=== PATIENT | male | born 1985 | race Caucasian/White ===

== ENCOUNTER 2020-05-12 16:38 | Emergency (ER) | payer MEDICAID, SELFPAY ==
[2020-05-12 16:56] VITALS: BP 150/87; BP 150/90; PULSE 90; PULSE 97; RESP 19; TEMP 36.7; O2SAT 100; O2SAT 99; BMI 43.1
--- NOTE | 2020-05-12 17:03 | ED_ITS ---
HPI - Overdose General Chief Complaint: ETOH/Substance Use Stated Complaint: SUBSTANCE ABUSE Time Seen by Provider: 05/12/20 17:02 Source: patient Mode of arrival: EMS Limitations: no limitations History of Present Illness HPI Narrative: Patient brought by EMS for questionable shortness of breath when EMS arrived at home patient was slightly hallucinating walking around seems like under influence of PCP patient is, otherwise and compliant denying any use of PCP complaint: accidental overdose Onset (ago): minute(s) Intent: unwilling to say Related Data Allergies Allergy/AdvReac Type Severity Reaction Status Date / Time Penicillins [PENICILLINS] Allergy Severe SHORTNESS Verified 05/12/20 16:56 OF BREATH sulfamethoxazole Allergy Severe HIVES Verified 05/12/20 16:56 [From BACTRIM] trimethoprim [From BACTRIM] Allergy Severe HIVES Verified 05/12/20 16:56 Review of Systems Review of Systems: Yes Unobtainable due to mental status PMFSH Social History Social History Alcohol intake: never Smoking Status: Never smoker Use of substances other than those prescribed or required for medical reasons: Unknown Advance Directives: No Advance Directives Information Provided: No Physical Exam Vital Signs: Vital Signs: Last Vital Signs Temp 98.1 F 05/12/20 16:56 Pulse 97 05/12/20 16:56 Resp 19 05/12/20 16:56 BP 150/87 H 05/12/20 16:56 Pulse Ox 99 05/12/20 16:56 Body Mass Index 43.1 Const: General: comfortable and no acute distress Orientation/consciousness: patient oriented x3 HENMT: Head: Yes normocephalic and Yes atraumatic Eyes: General: appearance normal, both eyes and all related structures Pupils: Equal, round and reactive pupils present Neck: Neck: Yes normal visual inspection Resp: Effort & Inspection: normal respiratory effort Auscultation: clear to auscultation bilaterally, no crackles and no rales Cardio: Jugular venous distension: no JVD Palpation: normal PMI Rate: regular rate Rhythm: regular rhythm Heart sounds: S1 normal heart sound present and S2 normal heart sound present Peripheral pulses: Peripheral pulses 2+ throughout GI: Inspection: Yes normal to inspection Palpation (GI): Soft to palpation and nontender Auscultation: normal bowel sounds : General: Yes no CVA tenderness Back/Spine/Pelvis: Back: no CVA tenderness Thoracic/Lumbar Spine: thoracic and lumbar spine normal to inspection Skin: General skin exam: no rashes or lesions noted Neuro: General: patient oriented x3 and no focal motor deficits Cranial nerves: Yes Equal, round and reactive pupils present Extrem: General: Yes normal to inspection and Yes normal gait Psych: Appearance: grossly normal Mental Status: mental status grossly normal Speech and movement: Normal speech and movement present Affect: Ecstatic affect present Attitude: cooperative Thought process: Loose association thought process present Thought content: Derealization present Insight: Limited insight present (Psych) Judgement: Limited judgement present (Psych) MDM - Overdose MDM Narrative Medical decision making narrative: Patient influenza PCP no significant life- threatening hallucination noticed in the ER patient is calm cooperative will discharge him home with his family Lab Data Attestation: I reviewed the patient's lab results. Labs: Lab Results 05/12/20 Range/Units 17:43 Urine Opiates Screen Not Detected (Not Detect) Ur Barbiturates Screen Not Detected (Not Detect) Ur Phencyclidine Scrn POSITIVE H (Not Detect) Ur Amphetamines Screen Not Detected (Not Detect) U Benzodiazepines Scrn Not Detected (Not Detect) Urine Cocaine Screen Not Detected (Not Detect) U Marijuana (THC) Screen Not Detected (Not Detect) Discharge Plan Discharge Clinical Impression: PCP intoxication Qualifiers: Complication of substance-induced condition: uncomplicated Qualified Code(s): F16.920 - Hallucinogen use, unspecified with intoxication, uncomplicated Patient Disposition: Home, Self-Care Instructions: Polysubstance Abuse (ED) Additional Instructions: Stop using PCP. Follow-up with detox
[2020-05-12 18:19] LABS: Amphetamine Screen Urine Not Detected (Not Detect); Barbiturates, Urine Not Detected (Not Detect); Benzodiazepines Screen Urine Not Detected (Not Detect); Cannabinoid Screen Urine Not Detected (Not Detect); Cocaine Screen Urine Not Detected (Not Detect); Opiate Screen Urine Not Detected (Not Detect); Phencyclidine Screen Urine POSITIVE (Not Detect)
== END 2020-05-12 18:55 | disposition home or self-care (01) ==
PROVIDERS: Emergency Provider Internal Medicine
DX: F16.129 Hallucinogen abuse with intoxication, unspecified (principal); F16.151 Hallucinogen abuse with hallucinogen-induced psychotic disorder with hallucinations
CPT/HCPCS: 80307; 99283; 99284

== ENCOUNTER 2020-07-16 14:39 | Emergency (ER) | payer MEDICAID, SELFPAY ==
[2020-07-16 15:27] VITALS: BP 143/84; BP 148/78; PULSE 107; PULSE 94; RESP 16; TEMP 36.6; O2SAT 95; BMI 41.8
--- NOTE | 2020-07-16 15:45 | PC.NURSE ---
Pt steady on feet, asking for this RN. Pt made aware I will attend to him momentarily. Pt also noted to be masturbating in [place]. Next time pt noted not to be in [place] bed, security reports pt left 5 min prior. Security attempted to find pt and unable. Lisa aware.
--- NOTE | 2020-07-16 15:58 | ED.ALCOHOL ---
HPI - Alcohol General Chief Complaint: ETOH/Substance Use Stated Complaint: PCP USE,CALM AND COOP @ THIS TIME Time Seen by Provider: 07/16/20 15:01 Source: patient and EMS Mode of arrival: EMS History of Present Illness HPI narrative: 34-year-old male with a past medical history of PCP abuse brought in by EMS for fall down stairs under the influence of PCP. Per EMS patient was found awake and alert on their arrival, patient denies illicit drug/ETOH use or falling down the stairs/trauma or injury. Patient not cooperative with my history. Denies headache, CP/SOB, abdominal pain, nausea/vomiting, any injury, SI or HI Related Data Allergies Allergy/AdvReac Type Severity Reaction Status Date / Time Penicillins [PENICILLINS] Allergy Severe SHORTNESS Verified 05/12/20 16:56 OF BREATH sulfamethoxazole Allergy Severe HIVES Verified 05/12/20 16:56 [From BACTRIM] trimethoprim [From BACTRIM] Allergy Severe HIVES Verified 05/12/20 16:56 Review of Systems Review of Systems: Constitutional: No Fever, No Chills Cardiovascular: No Chest Pain, No SOB Gastrointestinal: No Abdominal pain Musculoskeletal: No joint pain Skin: No Skin Lesions, No rash Neuro: No Weakness, No Loss of Consciousness, No Headache Psych: No Depression, No SI/HI Yes all other systems are reviewed and are negative [facility] Past Medical History Attestation statement: The following information was validated with the patient. Social History Social History Alcohol intake: never Smoking Status: Never smoker Advance Directives: No Advance Directives Information Provided: No Physical Exam Vital Signs: Vital Signs: Last Vital Signs Temp 98 F 07/16/20 15:27 Pulse 107 H 07/16/20 15:27 Resp 16 07/16/20 15:27 BP 143/84 H 07/16/20 15:27 Pulse Ox 95 07/16/20 15:27 Body Mass Index 41.8 Const: General: cooperative, healthy appearing, comfortable, no acute distress, alert and awake HENMT: Head: Yes normal to inspection, Yes atraumatic, No Vines's sign and No raccoon eyes Ears: hearing grossly normal bilaterally General nose exam: Normal external nose present Face and sinus: Yes normal facial exam Eyes: General: appearance normal, both eyes and all related structures EOM: EOMs intact bilaterally Neck: Other: No midline cervical spinous tenderness Neck: Yes normal visual inspection and Yes no meningeal signs Chest: Chest palpation & inspection: normal inspection of the chest, no crepitus and no tenderness Resp: Effort & Inspection: normal respiratory effort Auscultation: clear to auscultation bilaterally Cardio: Rate: regular rate Heart sounds: S1 normal heart sound present and S2 normal heart sound present GI: Inspection: Yes normal to inspection Palpation (GI): Soft to palpation, nontender, no guarding and not rigid Back/Spine/Pelvis: Other: No midline thoracic/lumbar spinous tenderness Skin: Rashes: no rashes Wounds: no wounds Neuro: Other: Following simple commands, intermittently answering questions with simple/one-word answers General: gait normal, tone normal, moves all extremities, no meningeal signs and no focal motor deficits Gait exam (Neuro): Normal gait present Extrem: General: Yes normal to inspection Course Course Course Narrative: -1550--patient eloped the ED, was seen by security walking up the hill behind campus. Prior to eloping was in hallway bed inappropriately touching himself. Patient ambulated with steady gait out of the ED per witnessed bystanders, we were unable to locate patient to bring him back to ED. MDM - Alcohol MDM Narrative Medical decision making narrative: 34-year-old male with a past medical history of PCP abuse brought in by EMS for fall down stairs under the influence of PCP. On exam mildly tachycardic, NAD, atraumatic, in no apparent distress, awake and alert sitting up in bed, appears under the influence, not cooperative with my history, no trauma appreciated, no focal neuro deficits Plan to observe and reassess Discharge Plan Discharge Clinical Impression: PCP (phencyclidine) abuse Patient Disposition: Elopement Referrals: [place],[facility] [Primary Care Provider] - 2 days Discharge Date/Time: 07/16/20 15:45
== END 2020-07-16 15:45 | disposition left against medical advice (07) ==
PROVIDERS: Emergency Provider Emergency Medicine
DX: F16.10 Hallucinogen abuse, uncomplicated (principal); R00.0 Tachycardia, unspecified
CPT/HCPCS: 36415; 87635; 99281; 99282; 99283

== ENCOUNTER 2020-07-16 18:58 | Emergency (ER) | payer MEDICAID, SELFPAY ==
[2020-07-16 19:13] VITALS: BP 145/86; PULSE 101; RESP 16; TEMP 36.2; O2SAT 95; BMI 38.0
[2020-07-16 19:56] LABS: COVID-19 Test Negative (Negative)
--- NOTE | 2020-07-16 20:06 | ED_ITS ---
HPI - Psych General Chief Complaint: Psychiatric Symptoms Stated Complaint: crisis Source: patient and EMS Mode of arrival: EMS Limitations: altered mental status (PCP) History of Present Illness HPI Narrative: 34-year-old male with past medical history of PCP abuse presents via EMS for erratic behavior, public nudity, on [address] [place] [employer]. Patient is well-known to this facility and has presented for similar circumstances multiple times in the past. MD complaint: substance abuse Onset (ago): hour(s) (Within the hour of arrival) Duration: constant History of same: Yes Relieving factors: none Exacerbating factors: drug use Context: recent drug abuse Associated psychiatric symptoms: none Associated symptoms: denies other symptoms Related Data Allergies Allergy/AdvReac Type Severity Reaction Status Date / Time Penicillins [PENICILLINS] Allergy Severe SHORTNESS Verified 05/12/20 16:56 OF BREATH sulfamethoxazole Allergy Severe HIVES Verified 05/12/20 16:56 [From BACTRIM] trimethoprim [From BACTRIM] Allergy Severe HIVES Verified 05/12/20 16:56 Review of Systems Review of Systems: Yes Unobtainable due to mental status PMFSH Past Medical History Attestation statement: The following information was validated with the patient. Source: old records reviewed Social History Social History Alcohol intake: never Smoking Status: Never smoker Advance Directives: No Advance Directives Information Provided: Yes Physical Exam Vital Signs: Vital Signs: Last Vital Signs Temp 97.2 F 07/16/20 19:13 Pulse 101 H 07/16/20 19:13 Resp 16 07/16/20 19:13 BP 145/86 H 07/16/20 19:13 Pulse Ox 95 07/16/20 19:13 Body Mass Index 38.0 Appearance: Alert. Oriented X3. Moderate distress PCP intoxication. Eyes: Pupils equal, round and reactive to light. ENT: Pharynx normal. Neck: Normal inspection. Neck supple. CVS: Normal heart rate and rhythm. Pulses normal. Respiratory: No respiratory distress. Breath sounds normal. Abdomen: Soft and nontender. Skin: Skin warm and dry. Normal skin color. Normal skin turgor. Extremities: No lower extremity edema. Neuro: No motor deficit. No sensory deficit. Course Course Course Narrative: Patient found naked in the street, brought in by EMS and police escort. Appears to be intoxicated with history of PCP abuse. [address]. Patient evaluated 3 hours after arrival to the unit. Patient is alert oriented x3, answering questions to the best of his ability. Denies suicidal ideation, homicidal ideations, and states to have used PCP earlier today that has impaired his ability to recall the events that led him up to the emergency department. Patient presents to the emergency department for PCP intoxication quite often, his family is willing to take him home. As patient is not suicidal or homicidal, and is not a threat to others or himself plan is to discharge in the care of his parents. Family verbalized understanding of and agrees to plan of care. MDM - Psych Differential Diagnosis Differential diagnosis: Likely acute psychosis, drug-induced psychotic disorder and schizoaffective disorder Medical Records Attestation: I reviewed the patient's medical records. Lab Data Attestation: I reviewed the patient's lab results. Labs: Lab Results 07/16/20 Range/Units 19:29 COVID-19 (ANNEL) Negative (Negative) COVID-19 Clin Com See Note Discharge Plan Discharge Clinical Impression: PCP (phencyclidine) abuse Patient Disposition: Home, Self-Care Instructions: Polysubstance Abuse (ED) Additional Instructions: Please consider detox. Thank you for choosing this emergency department for evaluation. Please follow-up with primary care physician as needed. Return to the emergency department for any new, concerning, or worsening symptoms. Interventions: ED Discharge Assessment Last Done: 07/16/20 21:50 Discharge Date/Time: 07/16/20 22:05
== END 2020-07-16 22:05 | disposition home or self-care (01) ==
PROVIDERS: Nurse Practitioner Family; Emergency Provider Emergency Medicine
DX: F16.10 Hallucinogen abuse, uncomplicated (principal); Z20.822 Contact with and (suspected) exposure to COVID-19
CPT/HCPCS: 36415; 87635; 99282; 99283

== ENCOUNTER 2020-09-13 09:32 | Outpatient (REF) | payer MEDICAID, SELFPAY | END 2020-09-13 09:33 | disposition home or self-care (01) | LOC: HO.LAB 09:32 | PROVIDERS: Visit Provider Internal Medicine | DX: Z20.822 Contact with and (suspected) exposure to COVID-19 (principal) | CPT/HCPCS: C9803; U0003; U0005 ==

== ENCOUNTER 2020-12-20 02:24 | Emergency (ER) | payer MEDICAID, SELFPAY ==
[2020-12-20 02:30] VITALS: BP 122/76; PULSE 86; O2SAT 97
[2020-12-20 02:33] VITALS: BP 159/93; PULSE 67; RESP 16; O2SAT 100; BMI 34.9
--- NOTE | 2020-12-20 03:15 | ED.GENADULT ---
HPI - General Adult General Chief complaint: ETOH/Substance Use Stated complaint: PCP Time Seen by Provider: 12/20/20 03:14 Source: patient Mode of arrival: ambulatory Limitations: no limitations History of Present Illness HPI narrative: Patient with history of substance abuse his PCP earlier today brought by ambulance intoxicated on the street. On arrival patient is calm cooperative denies any hallucination Related Data Allergies Allergy/AdvReac Type Severity Reaction Status Date / Time Penicillins [PENICILLINS] Allergy Severe SHORTNESS Verified 05/12/20 16:56 OF BREATH sulfamethoxazole Allergy Severe HIVES Verified 05/12/20 16:56 [From BACTRIM] trimethoprim [From BACTRIM] Allergy Severe HIVES Verified 05/12/20 16:56 Review of Systems Review of Systems: Yes all other systems are reviewed and are negative PMFSH Past Medical History Medical History ACL (anterior cruciate ligament) tear Social History Social History Alcohol intake: never Advance Directives: No Advance Directives Information Provided: No Physical Exam Vital Signs: Vital Signs: Last Vital Signs Pulse 67 12/20/20 02:33 Resp 16 12/20/20 02:33 BP 159/93 H 12/20/20 02:33 Pulse Ox 100 12/20/20 02:33 Body Mass Index 34.9 Appearance: Alert. Oriented X3. No acute distress. Slightly euphoric no hallucinations Eyes: PERRLA, No Nystagmus ENT: Pharynx normal. Oral Mucosa moist Neck: Normal inspection. Neck supple. CVS: Normal heart rate and rhythm. Pulses normal. Respiratory: No respiratory distress. Equal air entry bilateral, no wheezing/rales/rhonchi Abdomen: Soft and nontender. Bowel sounds are present, Skin: Skin warm and dry. Normal skin color. Extremities: No lower extremity edema. Neuro: Oriented X 3. Medical Decision Making MDM Narrative Medical decision making narrative: 4:15am Patient walking in a straight line improved, no hallucinations will discharge patient home Discharge Plan Discharge Clinical Impression: PCP (phencyclidine) abuse Patient Disposition: Home, Self-Care Instructions: Polysubstance Abuse (ED) Additional Instructions: Do not use PCP or any other substance Follow-up with detox if needed
[2020-12-20 04:00] VITALS: BP 149/93; PULSE 76; RESP 18; O2SAT 98
== END 2020-12-20 04:27 | disposition home or self-care (01) ==
PROVIDERS: Emergency Provider Internal Medicine
DX: F16.10 Hallucinogen abuse, uncomplicated (principal); Z71.51 Drug abuse counseling and surveillance of drug abuser; Z79.899 Other long term (current) drug therapy
CPT/HCPCS: 99283; 99284

== ENCOUNTER 2020-12-29 01:38 | Emergency (ER) | payer MEDICAID, SELFPAY ==
[2020-12-29 01:46] VITALS: BP 146/84; PULSE 76; RESP 16; TEMP 36.8; O2SAT 97; BMI 35.2
--- NOTE | 2020-12-29 01:52 | ED_ITS ---
HPI - General Adult General Chief complaint: General Medical Stated complaint: stroke alert Time Seen by Provider: 12/29/20 01:52 Source: EMS Mode of arrival: EMS History of Present Illness HPI narrative: 35-year-old male brought in by EMS initially as a stroke alert, reporting no bystanders, as well as ?from home? and unable to identify who called EMS. On arrival, best response was patient acknowledged using drugs prior to arrival. Related Data Allergies Allergy/AdvReac Type Severity Reaction Status Date / Time Penicillins [PENICILLINS] Allergy Severe SHORTNESS Verified 05/12/20 16:56 OF BREATH sulfamethoxazole Allergy Severe HIVES Verified 05/12/20 16:56 [From BACTRIM] trimethoprim [From BACTRIM] Allergy Severe HIVES Verified 05/12/20 16:56 Review of Systems Review of Systems: Pertinent positives and negatives as stated in the HPI and 10 point review of systems is otherwise negative. Yes Unobtainable due to mental condition PMFSH Past Medical History Source: nursing notes reviewed Medical History ACL (anterior cruciate ligament) tear Social History Social History Alcohol intake: never Advance Directives: No Advance Directives Information Provided: Yes Physical Exam Vital Signs: Vital Signs: Last Vital Signs Temp 98.3 F 12/29/20 01:46 Pulse 76 12/29/20 01:46 Resp 16 12/29/20 01:46 BP 146/84 H 12/29/20 01:46 Pulse Ox 97 12/29/20 01:46 Body Mass Index 35.2 VITAL SIGNS: Reviewed. GENERAL: Well developed, well nourished, in no acute distress. HEAD: Normocephalic/atraumatic EYES: PERRLA, EOMI without nystagmus OROPHARYNX: no oral lesions noted, posterior pharynx clear NECK: Supple, no adenopathy LUNGS: Normal breath sounds. CARDIOVASCULAR: Regular rate and rhythm without noted murmurs ABDOMEN: Soft, non-tender, non-distended with bowel sounds. MUSCULOSKELETAL: No tenderness, deformities, or effusions noted on gross inspection. EXTREMITIES: No cyanosis, clubbing or edema. SKIN: Inspection of the skin reveals no rashes NEUROLOGIC: Alert and oriented x 1. Strength and sensation to light touch were grossly intact x 4, noted spontaneous movement of all 4 extremities without obvious deficits, no facial asymmetry. NIH Stroke Scale Internal: Initial- Upon Arrival Level of Consciousness: Alert Level of Consciousness Questions: Answers both questions correctly Level of Consciousness Commands: Performs both tasks correctly Best Gaze: Normal Visual: No visual loss Facial Palsy: Normal Motor Arm (Right): No drift Motor Arm (Left): No drift Motor Leg (Right): No drift Motor Leg (Left): No drift Limb Ataxia: Absent Sensory: Normal Best Language: Mute, global aphasia Dysarthia: Normal Extinction and Inattention: No abnormality Score: 3 Course Course Course Narrative: 35-year-old male with initial presentation as a stroke alert, however on arrival patient is known and suspected to have used substances prior to arrival and is observed to be moving all 4 extremities without complications, patient observed to be smiling and there is no noted facial asymmetry. Low clinical suspicion for acute ischemic stroke and patient not emergently scanned. Patient was later observed to easily transfer himself from the EMS gurney onto the ER gurney. NIH Stroke Scale was filled out, however due to patient's substance use there are areas that are really not applicable and the score is not reflective of patient's neurologic capacity. Patient was noted to be eating and drinking without difficulty and walking to the bathroom with a steady gait. Patient obtained safe transportation home and requested discharge. There were no acute medical conditions identified and patient was discharged home in stable condition. Discharge Plan Discharge Clinical Impression: Active substance abuse Patient Disposition: Home, Self-Care Instructions: Polysubstance Abuse (ED) Additional Instructions: Return to the ER for worsening symptoms and follow-up with your primary care provider on Wednesday. Interventions: ED Discharge Assessment Last Done: 12/29/20 04:22 Discharge Date/Time: 12/29/20 04:23 Print Language: Salvadorean
--- NOTE | 2020-12-29 02:05 | PC.NURSE ---
PATIENT IS ALERT ANSWERING QUESTIONS, TALKING ON THE PHONE AND IS ORIENTED TO PERSON, PLACE AND TIME. ASKING FRIEND ON THE PHONE FOR A RIDE HOME. TOLERATED PO CHALLENGE AND AMBULATING STEADILY IN THE HALLWAY ASKING STAFF FOR MORE FOOD. TELLING THE PERSON ON THE PHONE I WAS SMOKING AND NOW I AM HERE
== END 2020-12-29 04:23 | disposition home or self-care (01) ==
PROVIDERS: Emergency Provider Student in an Organized Health Care Education/Training Program
DX: F19.10 Other psychoactive substance abuse, uncomplicated (principal)
CPT/HCPCS: 99283

== ENCOUNTER 2020-12-31 11:39 | Emergency (ER) | payer MEDICAID, SELFPAY ==
--- NOTE | 2020-12-31 11:52 | ED.PSYCH ---
HPI - Psych General Chief Complaint: ETOH/Substance Use Stated Complaint: PSYCH EVAL,NO HI,NO SI Time Seen by Provider: 12/31/20 11:52 Source: patient and EMS Mode of arrival: EMS Limitations: other (appears under the influence, giggling) History of Present Illness HPI Narrative: 35 yo male seen here many times for PCP use comes in after grandmother called 911 for evaluation no other history given MD complaint: substance abuse Onset (ago): unknown Duration: intermittent History of same: Yes Relieving factors: none Exacerbating factors: drug use Context: other Associated psychiatric symptoms: none Associated symptoms: denies other symptoms Treatments prior to arrival: none Related Data Allergies Allergy/AdvReac Type Severity Reaction Status Date / Time Penicillins [PENICILLINS] Allergy Severe SHORTNESS Verified 05/12/20 16:56 OF BREATH sulfamethoxazole Allergy Severe HIVES Verified 05/12/20 16:56 [From BACTRIM] trimethoprim [From BACTRIM] Allergy Severe HIVES Verified 05/12/20 16:56 Review of Systems Review of Systems: ROS unable to be obtained due to altered mental status [facility] Past Medical History Medical History (Updated 12/31/20 @ 14:18 by Sara Foss DO) ACL (anterior cruciate ligament) tear PCP abuse Social History Social History (Updated 12/31/20 @ 12:17 by Sara Foss DO) Alcohol intake: never Substance Use Type: Hallucinogens Advance Directives: No Advance Directives Information Provided: No Physical Exam Vital Signs: Vital Signs: Last Vital Signs Temp 98.5 F 12/31/20 12:09 Pulse 89 12/31/20 12:09 Resp 14 12/31/20 12:09 BP 176/96 H 12/31/20 12:09 Pulse Ox 98 12/31/20 12:09 Body Mass Index 30.0 Appearance: Alert. Oriented to person/place giggling. No acute distress. Eyes: Pupils equal, round and reactive to light. no nystagmus ENT: Pharynx normal. Neck: Normal inspection. Neck supple. CVS: Normal heart rate and rhythm. Pulses normal. Respiratory: No respiratory distress. Breath sounds normal. Abdomen: Soft and non-tender. Skin: Skin warm and dry. Normal skin color. Extremities: No lower extremity edema. Neuro: Oriented X 2. No motor deficit. No sensory deficit. Giggling, walking around, smiling Course Course Course Narrative: around 6o or 7 visits for PCP abuse this year very disinhibited at this time patient seems to be more coherent at this time, pending clinical sobriety stable for DC MDM - Psych MDM Narrative Medical decision making narrative: 35 yo male with ED visits for PCP abuse here with c/o giggling and being confused - at this time labs, drug screen and observation, no trauma noted Lab Data Labs: Lab Results 12/31/20 12/31/20 Range/Units 14:39 14:39 Urine Opiates Screen Not Detected (Not Detect) Urine Fentanyl Screen Not Detected (Not Detect) Ur Barbiturates Screen Not Detected (Not Detect) Ur Phencyclidine Scrn POSITIVE H (Not Detect) Ur Amphetamines Screen Not Detected (Not Detect) U Benzodiazepines Scrn Not Detected (Not Detect) Urine Cocaine Screen Not Detected (Not Detect) U Marijuana (THC) Screen Not Detected (Not Detect) COVID-19 (ANNEL) Negative (Negative) COVID-19 Clin Com See Note Discharge Plan Discharge Clinical Impression: Drug abuse, phencyclidine Instructions: Polysubstance Abuse (ED) Additional Instructions: return to ED for any worsening symptoms or concerns
[2020-12-31 12:09] VITALS: BP 131/89; BP 176/96; PULSE 82; PULSE 89; RESP 14; TEMP 36.9; O2SAT 97; O2SAT 98
--- NOTE | 2020-12-31 13:17 | PC.NURSE ---
patient quiet sometimes staring at staff. sometimes comes out into milieu with no little top on.
--- NOTE | 2020-12-31 13:48 | MHC.RECOVSUP ---
? Reason for consult:Recovery support o Current location:[facility] o Identified substance use concern: Unknown - Support ? Intervention: ? Plan: ? Additional information: Pt. uncooperative, nurse was unable to get a blood draw or a urine for toxicity.
[2020-12-31 15:19] LABS: Amphetamine Screen Urine Not Detected (Not Detect); Barbiturates, Urine Not Detected (Not Detect); Benzodiazepines Screen Urine Not Detected (Not Detect); Cannabinoid Screen Urine Not Detected (Not Detect); Cocaine Screen Urine Not Detected (Not Detect); Fentanyl, urine Not Detected (Not Detect); Opiate Screen Urine Not Detected (Not Detect); Phencyclidine Screen Urine POSITIVE (Not Detect)
[2020-12-31 15:40] LABS: COVID-19 Test Negative (Negative)
[2020-12-31 17:38] VITALS: BP 133/82; PULSE 99; RESP 18; TEMP 37.4; O2SAT 95
--- NOTE | 2020-12-31 18:12 | MHC.RECOVSUP ---
? Reason for consult Recovery Support o Current location: [facility] o Identified substance use concern: PCP <del>-</del> <del>Overdose</del> <del>-</del> <del>Withdrawal</del> <del>-</del> <del>Seeking</del> <del>ATS</del> <del>(detox)</del> <del>-</del> <del>Support</del> ? Intervention: <del>o</del> <del>ATS</del> <del>bed</del> <del>search</del> <del>started/completed/in</del> <del>process</del> <del>o</del> <del>MAT</del> <del>started</del> <del>or</del> <del>to</del> <del>be</del> <del>started</del> o Community resources provided o Harm reduction discussion ? Plan: o Patient to follow up with HF after discharge ? Additional information: Patient stated that he is good, and that all he wants is to go home. I was able to talk some recovery and was given resources if he need or want recovery
== END 2020-12-31 18:35 | disposition home or self-care (01) ==
PROVIDERS: Emergency Provider Emergency Medicine
DX: F16.19 Hallucinogen abuse with unspecified hallucinogen-induced disorder (principal); Z20.822 Contact with and (suspected) exposure to COVID-19; Z79.899 Other long term (current) drug therapy
CPT/HCPCS: 36415; 80307; 87635; 99284

== ENCOUNTER 2021-01-01 16:16 | Emergency (ER) | payer MEDICAID, SELFPAY ==
--- NOTE | 2021-01-01 16:31 | ED_ITS ---
HPI - General Adult General Chief complaint: General Medical Stated complaint: SOMNOLENT S/P PCP USE PER EMS Time Seen by Provider: 01/01/21 16:20 Source: patient and EMS Mode of arrival: EMS Limitations: no limitations History of Present Illness HPI narrative: 35 yo male here after using PCP just [employer] with multiple visits for same. No reports of injury or trauma. Patient deneis additional substance use. No physical complaints. Related Data Allergies Allergy/AdvReac Type Severity Reaction Status Date / Time Penicillins [PENICILLINS] Allergy Severe SHORTNESS Verified 05/12/20 16:56 OF BREATH sulfamethoxazole Allergy Severe HIVES Verified 05/12/20 16:56 [From BACTRIM] trimethoprim [From BACTRIM] Allergy Severe HIVES Verified 05/12/20 16:56 Review of Systems Review of Systems: Yes all other systems are reviewed and are negative Constitutional: Constitutional: Reports no additional constitutional complaints, Denies body ache(s), Denies chills, Denies fever(s), Denies headache(s) and Denies weakness Eyes: Eyes: Reports no additional eye complaints and Denies change in vision ENT: Reports system reviewed and no additional complaints, except as documented, Denies dizziness, Denies headache(s), Denies nasal congestion, Denies nasal discharge and Denies neck pain Cardiovascular: Cardiovascular: Reports no additional cardiovascular complaints, Denies chest pain, Denies leg edema and Denies dyspnea Respiratory: Respiratory: Reports no additional respiratory complaints, Denies cough and Denies dyspnea Gastrointestinal: Gastrointestinal: Reports no additional gastrointestinal complaints, Denies abdominal pain, Denies diarrhea, Denies nausea and Denies vomiting Genitourinary: Genitourinary: Denies urinary incontinence Musculoskeletal: Musculoskeletal: Reports no additional musculoskeletal complaints, Denies back pain, Denies arthralgias, Denies joint swelling, Denies neck pain, Denies numbness and Denies tingling Integumentary/Breasts: Skin/Breast: Reports system reviewed and no additional complaints, except as docu and Denies rash Neurologic: Reports system reviewed and no additional complaints, except as documented, Denies Abnormal speech present, Denies dizziness, Denies headache(s), Denies numbness, Denies tingling and Denies weakness [facility] Past Medical History Attestation statement: The following information was validated with the patient. Source: old records reviewed and nursing notes reviewed Medical History ACL (anterior cruciate ligament) tear PCP abuse Social History Social History Alcohol intake: never Substance Use Type: Hallucinogens Advance Directives: No Advance Directives Information Provided: No Physical Exam Vital Signs: Vital Signs: Last Vital Signs Temp 98.4 F 01/01/21 18:42 Pulse 89 01/01/21 18:42 Resp 20 01/01/21 18:42 BP 144/100 H 01/01/21 18:42 Pulse Ox 98 01/01/21 18:42 Body Mass Index 31.6 Const: General: cooperative, healthy appearing, comfortable and no acute distress Orientation/consciousness: patient oriented x3 Limitations: no limitations HENMT: Head: Yes normal to inspection Ears: hearing grossly normal [place] aterally General nose exam: Normal external nose present Face and sinus: Yes normal facial exam Mouth: Normal oral and palatal mucosa present Throat: Yes posterior oropharynx normal Eyes: General: appearance normal, both eyes and all related structures Pupils: Equal, round and reactive pupils present Neck: Neck: Yes normal visual inspection Chest: Chest palpation & inspection: normal inspection of the chest Resp: Effort & Inspection: normal respiratory effort Auscultation: clear to auscultation bilaterally Cardio: Rate: regular rate Rhythm: regular rhythm Peripheral pulses: Peripheral pulses 2+ throughout GI: Inspection: Yes normal to inspection Palpation (GI): Soft to palpation and nontender Auscultation: normal bowel sounds Back/Spine/Pelvis: Thoracic/Lumbar Spine: thoracic and lumbar spine normal to inspection Skin: General skin exam: no rashes or lesions noted Neuro: General: patient oriented x3, no focal motor deficits and normal sensation to monofilament Cranial nerves: Yes CN's II-XII intact bilaterally, Yes Equal, round and reactive pupils present, Yes Bilaterally intact EOM present, Yes Nystagmus not present, Yes Normal facial strength present and Yes Midline tongue present Cognition (Neuro): normal cognition Speech: No Abnormal speech present Gait exam (Neuro): Normal gait present Motor exam (neuro): 5/5 motor strength present throughout Sensory Exam: Normal double simultaneous stimulation for sensation Extrem: General: Yes normal to inspection Course Course Course Narrative: 35 yo male here after using PCP. A&Ox4. Normal VS. Appears well. No concern for acute ingestion or trauma. Will check SHERMAN, observe patient. 1800-Patient noted to be wandering, walked down to cafeteria by himself. Sitter order placed. Charge nurse Andrei sotelo. 1829-spoke to the patient's grandmother who he lives with. She tells me that they have Section 35 to the patient 11 times for PCP use. He went to the court on Wednesday to Section 35 him but were told that there were no available inpatient beds that were COVID free. She plans on petitioning the court again next week. 1909-patient has arrived. He was able to ambulate to the cafeteria get himself chips and a soda with no difficulty. He is clinically sober. Reviewed worrisome signs and symptoms of when to return to the emergency department. Comfortable discharge home. Medical Decision Making Medical Records Medical records reviewed: Yes I reviewed the patient's medical records. Lab Data Lab results reviewed: Yes I reviewed the patient's lab results. Discharge Plan Discharge Clinical Impression: PCP (phencyclidine) abuse Patient Disposition: Home, Self-Care Instructions: Polysubstance Abuse (ED) Referrals: Physician,Unknown J [Primary Care Provider] - 2 days Interventions: ED Discharge Assessment Last Done: 01/01/21 18:49 Discharge Date/Time: 01/01/21 18:50
[2021-01-01 16:41] VITALS: BP 132/88; BP 140/70; PULSE 76; RESP 19; TEMP 36.6; O2SAT 99; BMI 31.6
[2021-01-01 18:42] VITALS: BP 144/100; PULSE 89; RESP 20; TEMP 36.9; O2SAT 98
== END 2021-01-01 18:50 | disposition home or self-care (01) ==
PROVIDERS: Emergency Provider Internal Medicine
DX: F16.10 Hallucinogen abuse, uncomplicated (principal)
CPT/HCPCS: 99283

== ENCOUNTER 2021-01-02 17:10 | Emergency (ER) | payer MEDICAID, SELFPAY ==
[2021-01-02 17:16] VITALS: BP 133/73; PULSE 100; O2SAT 100
[2021-01-02 17:32] VITALS: BP 134/84; PULSE 84; RESP 16; TEMP 36.9; O2SAT 97; BMI 35.2
--- NOTE | 2021-01-02 19:03 | ED_ITS ---
HPI - General Adult General Chief complaint: ETOH/Substance Use Stated complaint: pcp use Time Seen by Provider: 01/02/21 17:30 Source: patient and EMS Mode of arrival: EMS History of Present Illness HPI narrative: 35-year-old male with past medical history of PCP/substance abuse, brought in by ambulance after being found in his front lawn naked. Denies trauma/fall. Poor historian as appears under the influence, laughing/giggling on exam. Patient has been seen and treated in the ED multiple times for similar circumstances in the past week Onset (ago): hour(s) Related Data Allergies Allergy/AdvReac Type Severity Reaction Status Date / Time Penicillins [PENICILLINS] Allergy Severe SHORTNESS Verified 05/12/20 16:56 OF BREATH sulfamethoxazole Allergy Severe HIVES Verified 05/12/20 16:56 [From BACTRIM] trimethoprim [From BACTRIM] Allergy Severe HIVES Verified 05/12/20 16:56 Review of Systems Review of Systems: Unable to obtain ROS secondary to patient being under the influence Yes all other systems are reviewed and are negative PMFSH Past Medical History Attestation statement: The following information was validated with the patient. Medical History ACL (anterior cruciate ligament) tear PCP abuse Social History Social History Alcohol intake: never Patient Tobacco Use Status: Tobacco use Unknown Use of substances other than those prescribed or required for medical reasons: Yes Substance Use Type: Hallucinogens Advance Directives: No Advance Directives Information Provided: No Physical Exam Vital Signs: Vital Signs: Last Vital Signs Temp 98.4 F 01/02/21 17:32 Pulse 84 01/02/21 17:32 Resp 16 01/02/21 17:32 BP 134/84 01/02/21 17:32 Pulse Ox 97 01/02/21 17:32 Body Mass Index 35.2 Const: Other: Appears under the influence, smiling/giggling General: cooperative, alert and awake HENMT: Head: Yes normal to inspection, Yes atraumatic, No Vines's sign and No raccoon eyes Ears: hearing grossly normal bilaterally General nose exam: Normal external nose present Face and sinus: Yes normal facial exam Eyes: General: appearance normal, both eyes and all related structures Pupils: Equal, round and reactive pupils present EOM: EOMs intact bilaterally Neck: Neck: Yes normal visual inspection and Yes no meningeal signs Resp: Effort & Inspection: normal respiratory effort and no respiratory distress Cardio: Rate: regular rate Heart sounds: S1 normal heart sound present and S2 normal heart sound present GI: Inspection: Yes normal to inspection Palpation (GI): Soft to palpation, nontender, no guarding and not rigid Skin: Rashes: no rashes Wounds: no wounds Neuro: Other: Walking around ED General: tone normal, moves all extremities, no meningeal signs and no focal motor deficits Cranial nerves: Yes Equal, round and reactive pupils present Gait exam (Neuro): Normal gait present Extrem: General: Yes normal to inspection Course Course Course Narrative: -2021--patient ambulating in the ED safely, walking back and forth from the Fridge helping himself, eating, clinically sober. safe for discharge at this time Medical Decision Making MDM Narrative Medical decision making narrative: 35-year-old male with past medical history of PCP/substance abuse, brought in by ambulance after being found in his front lawn naked. On exam vital signs stable, NAD, appears under the influence, giggling, ambulating, no evidence of trauma Plan to observe and reassess for clinical sobriety Discharge Plan Discharge Clinical Impression: PCP (phencyclidine) abuse Patient Disposition: Home, Self-Care Instructions: Polysubstance Abuse (ED) Additional Instructions: Do not do drugs or drink alcohol it can kill you Follow-up with her doctor Referrals: [facility] [Physician] - 2 days [facility] [Primary Care Provider] - 2 days
--- NOTE | 2021-01-02 20:26 | PC.NURSE ---
Pt alert and oriented x4. Pt ambulating around ER, opening fridge and grabbing food. Pt noted to be touching himself in the hallway. Pt making sexual statements to discharge specialist. Pt educated to stop and to stay in bed assignment, ot choosing to not listen. Pt completely alert and oriented, steady on his feet. Pt educated on dc teaching, refused to sign dc paperwork. Pt ambulated out of ER with belongings. No IV in place. Pt refusing vital signs to be taken.
== END 2021-01-02 20:28 | disposition home or self-care (01) ==
PROVIDERS: Emergency Provider Internal Medicine
DX: F16.10 Hallucinogen abuse, uncomplicated (principal)
CPT/HCPCS: 99282; 99284

== ENCOUNTER 2021-01-04 00:14 | Emergency (ER) | payer MEDICAID, SELFPAY ==
[2021-01-04 00:15] VITALS: BP 134/68; BP 136/73; PULSE 83; PULSE 90; RESP 16; TEMP 37.3; O2SAT 96; O2SAT 97; BMI 33.9
[2021-01-04 00:38] VITALS: RESP 16
--- NOTE | 2021-01-04 04:48 | ED_ITS ---
HPI - Psych General Chief Complaint: ETOH/Substance Use Stated Complaint: PCP Time Seen by Provider: 01/04/21 00:18 Source: patient Mode of arrival: EMS Limitations: altered mental status History of Present Illness HPI Narrative: 35-year-old male who was brought to the emergency department for evaluation of PCP/substance abuse. The patient has been seen frequently here with similar complaints. He has a history of PCP abuse and erratic behavior. The patient was found altered today and was brought to the emergency department by ambulance. The patient is not able to give me a history, he continues to repeat words, he continues to attempt to take off his hospital gown and tries to get naked . He wonders around the emergency department. Related Data Allergies Allergy/AdvReac Type Severity Reaction Status Date / Time Penicillins [PENICILLINS] Allergy Severe SHORTNESS Verified 05/12/20 16:56 OF BREATH sulfamethoxazole Allergy Severe HIVES Verified 05/12/20 16:56 [From BACTRIM] trimethoprim [From BACTRIM] Allergy Severe HIVES Verified 05/12/20 16:56 Review of Systems Review of Systems: Yes Unobtainable due to mental status PMFSH Past Medical History Medical History ACL (anterior cruciate ligament) tear PCP abuse Social History Social History Alcohol intake: unknown Patient Tobacco Use Status: Tobacco use Unknown Use of substances other than those prescribed or required for medical reasons: Yes Substance Use Type: Hallucinogens Substance Use Type Other:: PCP Advance Directives: No Advance Directives Information Provided: No Physical Exam Vital Signs: Vital Signs: Last Vital Signs Temp 99.2 F 01/04/21 00:15 Pulse 83 01/04/21 00:15 Resp 16 01/04/21 00:38 BP 136/73 01/04/21 00:15 Pulse Ox 96 01/04/21 00:15 Body Mass Index 33.9 Const: Other: Awake, alert, male, appears to be altered secondary to drug into xication, wanders around the emergency department continues to try to take off his hospital gown so he can be naked, is not redirectable. HENMT: Head: Yes normal to inspection, Yes normocephalic and Yes atraumatic Ears: external ears normal General nose exam: Normal external nose present Face and sinus: Yes normal facial exam Mouth: Normal oral and palatal mucosa present Throat: Yes posterior oropharynx normal Eyes: General: appearance normal, both eyes and all related structures Pupils: Equal, round and reactive pupils present Neck: Neck: Yes normal visual inspection, Yes no lymphadenopathy, Yes trachea midline and Yes supple Chest: Chest palpation & inspection: normal inspection of the chest and normal palpation of entire chest wall Resp: Effort & Inspection: normal respiratory effort and able to speak in complete sentences Auscultation: clear to auscultation bilaterally Cardio: Rate: regular rate Rhythm: regular rhythm Heart sounds: S1 normal heart sound present, S2 normal heart sound present and no murmurs GI: Inspection: Yes normal to inspection Palpation (GI): Soft to palpation, nontender and no guarding Auscultation: normal bowel sounds : General: Yes no CVA tenderness Back/Spine/Pelvis: Back: no CVA tenderness Skin: General skin exam: no rashes or lesions noted Neuro: Cranial nerves: Yes CN's II-XII intact bilaterally and Yes Equal, round and reactive pupils present Motor exam (neuro): 5/5 motor strength present throughout Extrem: General: Yes normal to inspection Psych: Other: Awake, alert, appears to be intoxicated on drugs , exhibiting erratic behavior Course Course Course Narrative: 35-year-old male who is well-known to the emergency department who has a history of PCP abuse who presents emergency department with altered mental status and erratic behavior consistent with his previous episodes when he has been using PCP. The patient was observed in the emergency department for approximately 4 hours. The patient is clearing up and is requesting to go home. The patient's grandmother states that she will come to the emergency department pick him up and take him home. Discharge Plan Discharge Clinical Impression: PCP (phencyclidine) abuse, Acute alteration in mental status Patient Disposition: Home, Self-Care Instructions: Polysubstance Abuse (ED) Additional Instructions: You need to get help with your substance use disorder. Follow-up with your doctor in 2 days. Please return to the emergency department if your symptoms get worse or if you develop any symptoms that are concerning to you.
--- NOTE | 2021-01-04 05:06 | PC.NURSE ---
PATIENT SEEN HERE MULTIPLE TIMES THIS WEEKEND FOR PCP USE IS BECOMING INCREASINGLY MORE SEXUALLY INAPPROPRIATE, TARGETING FEMALE STAFF, MASTRUBATING IN HALLWAY, DIFFICULT W/REDIRECTION, EXPOSING HIMSELF TO FEMALE STAFF, INTRUSIVE IN NURSES STATION, IN OTHER PATIENT CARE AREAS.
== END 2021-01-04 05:09 | disposition home or self-care (01) ==
PROVIDERS: Emergency Provider Emergency Medicine Emergency Medical Services
DX: F16.19 Hallucinogen abuse with unspecified hallucinogen-induced disorder (principal); R41.82 Altered mental status, unspecified; Z79.899 Other long term (current) drug therapy
CPT/HCPCS: 99283; 99284

== ENCOUNTER 2021-01-06 04:18 | Emergency (ER) | payer MEDICAID, SELFPAY ==
[2021-01-06 04:34] VITALS: BP 120/70; PULSE 104; RESP 15; TEMP 36.7; O2SAT 93; BMI 33.5
[2021-01-06 04:38] VITALS: PULSE 104
--- NOTE | 2021-01-06 06:16 | ED.GENADULT ---
HPI - General Adult General Chief complaint: ETOH/Substance Use Stated complaint: ETOH/DRUG USE Time Seen by Provider: 01/06/21 06:15 Source: patient and EMS Mode of arrival: EMS Limitations: no limitations History of Present Illness HPI narrative: 35-year-old male who was brought to the emergency department by ambulance for evaluation for altered level of consciousness secondary to using PCP. The patient apparently was found wandering around in a convenience store. He was confused and appeared to be intoxicated. The patient is well-known to the emergency department has been seen here multiple times for similar presentations. The patient apparently makes his own PCP and he does admit to taking PCP earlier this morning. The patient is confused but does answer questions. Related Data Related Data Allergies Allergy/AdvReac Type Severity Reaction Status Date / Time Penicillins [PENICILLINS] Allergy Severe SHORTNESS Verified 05/12/20 16:56 OF BREATH sulfamethoxazole Allergy Severe HIVES Verified 05/12/20 16:56 [From BACTRIM] trimethoprim [From BACTRIM] Allergy Severe HIVES Verified 05/12/20 16:56 Review of Systems Review of Systems: Yes Unobtainable due to mental status PMFSH Past Medical History Source: unable to obtain Medical History ACL (anterior cruciate ligament) tear PCP abuse Social History Social History Alcohol intake: never Patient Tobacco Use Status: Tobacco use Unknown Use of substances other than those prescribed or required for medical reasons: Yes Substance Use Type: Hallucinogens Substance Use Frequency: Chronic Longstanding Last Used Substance: Just Prior to Admission Any prior treatment program specific to substance use: No Advance Directives: No Advance Directives Information Provided: No Physical Exam Vital Signs: Vital Signs: Last Vital Signs Temp 98.1 F 01/06/21 04:34 Pulse 104 H 01/06/21 04:34 Resp 15 01/06/21 04:34 BP 120/70 01/06/21 04:34 Pulse Ox 93 01/06/21 04:34 Body Mass Index 33.5 Const: Other: Awake, alert, male patient, patient does answer questions appropriately but does also appear to be confused at times. Patient continues to try to take his gown and pants off, this is a behavior he has exhibited in the past when he has been seen here for PCP intoxication. HENMT: Head: Yes normal to inspection, Yes normocephalic and Yes atraumatic Ears: external ears normal General nose exam: Normal external nose present Face and sinus: Yes normal facial exam Mouth: Normal oral and palatal mucosa present Throat: Yes posterior oropharynx normal Eyes: General: appearance normal, both eyes and all related structures Pupils: Equal, round and reactive pupils present Neck: Neck: Yes normal visual inspection, Yes no lymphadenopathy, Yes trachea midline and Yes supple Chest: Chest palpation & inspection: normal inspection of the chest and normal palpation of entire chest wall Resp: Effort & Inspection: normal respiratory effort and able to speak in complete sentences Auscultation: clear to auscultation bilaterally Cardio: Rate: regular rate Rhythm: regular rhythm Heart sounds: S1 normal heart sound present, S2 normal heart sound present and no murmurs GI: Inspection: Yes normal to inspection Palpation (GI): Soft to palpation, nontender and no guarding Auscultation: normal bowel sounds : General: Yes no CVA tenderness Back/Spine/Pelvis: Back: no CVA tenderness Skin: General skin exam: no rashes or lesions noted Neuro: Cranial nerves: Yes CN's II-XII intact bilaterally and Yes Equal, round and reactive pupils present Cognition (Neuro): normal cognition Motor exam (neuro): 5/5 motor strength present throughout Extrem: General: Yes normal to inspection Psych: Other: Patient does answer questions appropriately but does appear to be confused at times, he moves all the extremities without any difficulty Course Course Course Narrative: 35-year-old male who presents emergency department for evaluation of altered mental status after using PCP. Patient has had multiple presentations to the emergency department with the same complaint. The patient does appear to be confused but does answer questions appropriately as well. The patient will be kept in the emergency department until his mental status returns to his baseline. At the end of my shift, the patient's care was turned over to my colleague, Dr. Alcala. Discharge Plan Discharge Clinical Impression: PCP (phencyclidine) abuse Patient Disposition: Home, Self-Care Additional Instructions: You need to get help with your PCP use disorder Follow-up with your doctor in 2 days. Please return to the emergency department if your symptoms get worse or if you develop any symptoms that are concerning to you.
== END 2021-01-06 08:20 | disposition home or self-care (01) ==
PROVIDERS: Emergency Provider Emergency Medicine Emergency Medical Services
DX: F16.19 Hallucinogen abuse with unspecified hallucinogen-induced disorder (principal); Z79.899 Other long term (current) drug therapy; Z71.51 Drug abuse counseling and surveillance of drug abuser
CPT/HCPCS: 99283; 99284

== ENCOUNTER 2021-01-06 19:35 | Emergency (ER) | payer MEDICAID, SELFPAY ==
[2021-01-06 19:52] VITALS: BMI 35.2
[2021-01-06 20:08] VITALS: BP 149/92; PULSE 84; RESP 13; TEMP 36.5; O2SAT 97
--- NOTE | 2021-01-06 21:04 | ED.GENADULT ---
HPI - General Adult General Chief complaint: ETOH/Substance Use Stated complaint: pcp Source: patient Mode of arrival: ambulatory Limitations: no limitations History of Present Illness HPI narrative: Patient presents to ED for PCP use. Patient called ambulance but does not know why he called 911. Patient is being every day for PCP use. Patient was given Section 35 and Section 35 program states did not have space for any more patients. Patient denies any suicidal/homicidal ideation. Patient states no physical complaints. Patient just wants to eat food. Patient denies any trauma. Related Data Allergies Allergy/AdvReac Type Severity Reaction Status Date / Time Penicillins [PENICILLINS] Allergy Severe SHORTNESS Verified 05/12/20 16:56 OF BREATH sulfamethoxazole Allergy Severe HIVES Verified 05/12/20 16:56 [From BACTRIM] trimethoprim [From BACTRIM] Allergy Severe HIVES Verified 05/12/20 16:56 Review of Systems Review of Systems: Yes all other systems are reviewed and are negative Constitutional: Constitutional: Reports as per HPI and Reports no additional constitutional complaints Eyes: Eyes: Reports as per HPI and Reports no additional eye complaints ENT: Reports system reviewed and no additional complaints, except as documented and Reports as per HPI Cardiovascular: Cardiovascular: Reports as per HPI and Reports no additional cardiovascular complaints Respiratory: Respiratory: Reports as per HPI and Reports no additional respiratory complaints Gastrointestinal: Gastrointestinal: Reports as per HPI and Reports no additional gastrointestinal complaints Genitourinary: Genitourinary: Reports no additional male genitourinary complaints and Reports as per HPI Musculoskeletal: Musculoskeletal: Reports no additional musculoskeletal complaints and Reports as per HPI Neurologic: Reports system reviewed and no additional complaints, except as documented and Reports as per HPI [facility] Past Medical History Medical History ACL (anterior cruciate ligament) tear PCP abuse Social History Social History Alcohol intake: never Patient Tobacco Use Status: Tobacco use Unknown Substance Use Type: Hallucinogens Advance Directives: No Physical Exam Vital Signs: Vital Signs: Last Vital Signs Temp 97.7 F 01/06/21 20:08 Pulse 84 01/06/21 20:08 Resp 13 01/06/21 20:08 BP 149/92 H 01/06/21 20:08 Pulse Ox 97 01/06/21 20:08 Body Mass Index 35.2 Const: General: cooperative, healthy appearing, comfortable, no acute distress, well developed, alert, awake and Physically active Orientation/consciousness: patient oriented x3 HENMT: Head: Yes normal to inspection, Yes No palpable skull fracture present, Yes normocephalic, Yes atraumatic and No abrasion Throat: Yes posterior oropharynx normal, Yes tonsils normal and Yes uvula midline Eyes: General: appearance normal, both eyes and all related structures Neck: Neck: Yes normal visual inspection, Yes full ROM, Yes no lymphadenopathy, Yes no meningeal signs, Yes trachea midline, Yes supple and No tender Chest: Chest palpation & inspection: normal inspection of the chest and normal palpation of entire chest wall Resp: Effort & Inspection: normal respiratory effort and able to speak in complete sentences Auscultation: clear to auscultation bilaterally Cardio: Jugular venous distension: no JVD Heart sounds: S1 normal heart sound present and S2 normal heart sound present GI: Inspection: Yes normal to inspection and No abdominal wall ecchymosis Palpation (GI): Soft to palpation, not firm, nontender, no guarding and not rigid : General: No CVA tenderness and Yes no CVA tenderness Back/Spine/Pelvis: Back: no CVA tenderness, No CVA tenderness and No back tenderness Skin: General skin exam: no rashes or lesions noted and elasticity normal Neuro: General: patient oriented x3, gait normal, no meningeal signs and CN's II-XI intact bilaterally Cranial nerves: Yes CN's II-XII intact bilaterally Extrem: General: Yes normal to inspection and Yes full ROM Psych: Appearance: grossly normal, well kempt and not disheveled Course Course Course Narrative: Patient denies any suicidal/homicidal ideation. Patient not any distress. Patient does not have any physical complaints. Patient does not want detox. Patient just wants food. Will watch for couple hours. Reevaluation(s) Reevaluation #1: Patient alert oriented x3 and ready for discharge. Patient not any distress. Time: 22:11 Medical Decision Making [facility] Narrative Medical decision making narrative: PCP use Discharge Plan Discharge Clinical Impression: PCP (phencyclidine) abuse Patient Disposition: Home, Self-Care Instructions: Polysubstance Abuse (ED) Additional Instructions: Return to the ED immediately for suicidal/homicidal ideation, auditory/visual hallucinations, any physical complaints, any other concerning symptoms. Please follow up with primary care provider Interventions: ED Discharge Assessment Last Done: 01/06/21 22:33 Discharge Date/Time: 01/06/21 22:37 Print Language: Bengali
== END 2021-01-06 22:37 | disposition home or self-care (01) ==
PROVIDERS: Emergency Provider Internal Medicine
DX: F16.951 Hallucinogen use, unspecified with hallucinogen-induced psychotic disorder with hallucinations (principal); Z71.51 Drug abuse counseling and surveillance of drug abuser
CPT/HCPCS: 99283

== ENCOUNTER 2021-01-09 02:03 | Emergency (ER) | payer MEDICAID, SELFPAY ==
[2021-01-09 02:38] VITALS: BP 134/79; PULSE 86; RESP 18; TEMP 36.2; O2SAT 97; BMI 32.5
--- NOTE | 2021-01-09 03:11 | ED.GENADULT ---
HPI - General Adult General Chief complaint: General Medical Stated complaint: drug use Time Seen by Provider: 01/09/21 03:10 Source: patient Mode of arrival: EMS History of Present Illness HPI narrative: 35-year-old male with longstanding history drug use, who is brought in by EMS after stating that he consumed homemade PCP and wished to come to the emergency room. On questioning the patient, he denies any fever, chills, nausea, vomiting, shortness of breath or chest pain. Related Data Allergies Allergy/AdvReac Type Severity Reaction Status Date / Time Penicillins [PENICILLINS] Allergy Severe SHORTNESS Verified 05/12/20 16:56 OF BREATH sulfamethoxazole Allergy Severe HIVES Verified 05/12/20 16:56 [From BACTRIM] trimethoprim [From BACTRIM] Allergy Severe HIVES Verified 05/12/20 16:56 Review of Systems Review of Systems: Pertinent positives and negatives as stated in HPI and 10 point review of systems is otherwise negative. PMFSH Past Medical History Source: nursing notes reviewed Medical History ACL (anterior cruciate ligament) tear PCP abuse Social History Social History Alcohol intake: never Patient Tobacco Use Status: Tobacco use Unknown Substance Use Type: Hallucinogens Advance Directives: No Physical Exam Vital Signs: Vital Signs: Last Vital Signs Temp 97.1 F 01/09/21 02:38 Pulse 86 01/09/21 02:38 Resp 18 01/09/21 02:38 BP 134/79 01/09/21 02:38 Pulse Ox 97 01/09/21 02:38 Body Mass Index 32.5 VITAL SIGNS: Reviewed. GENERAL: Well developed, well nourished, in no acute distress. HEAD: Normocephalic/atraumatic EYES: PERRLA, EOMI OROPHARYNX: no oral lesions noted, posterior pharynx clear LUNGS: Normal breath sounds. SpO2<97> CARDIOVASCULAR: Regular rate and rhythm without noted murmurs, no JVD or lower extremity edema. ABDOMEN: Soft, non-tender, non-distended with bowel sounds. NEUROLOGIC: Alert and oriented x 4. Strength and sensation to light touch were grossly intact x 4. Course Course Course Narrative: 35-year-old male well-known to the emergency room or recurrent drug use. Patient denies any current medical complaints at this time and is otherwise hemodynamically stable. He is noted to be walking with a steady gait and has tolerated oral intake. Patient now requesting to be discharged and has a safe ride home. Discharge Plan Discharge Clinical Impression: Substance use Patient Disposition: Home, Self-Care Instructions: Polysubstance Abuse (ED) Additional Instructions: Follow-up with primary care provider in the next 1-2 days for re-evaluation. Return to the ER for acute worsening of symptoms.
== END 2021-01-09 04:09 | disposition home or self-care (01) ==
PROVIDERS: Emergency Provider Student in an Organized Health Care Education/Training Program
DX: F19.90 Other psychoactive substance use, unspecified, uncomplicated (principal)
CPT/HCPCS: 99283

== ENCOUNTER 2021-01-12 03:09 | Emergency (ER) | payer MEDICAID, SELFPAY ==
[2021-01-12 04:18] VITALS: BP 140/88; PULSE 100; RESP 20; TEMP 37.3; O2SAT 100; BMI 28.7
--- NOTE | 2021-01-12 05:06 | ED.GENADULT ---
HPI - General Adult General Chief complaint: ETOH/Substance Use Stated complaint: ETOH Time Seen by Provider: 01/12/21 05:06 Source: patient Mode of arrival: EMS History of Present Illness HPI narrative: 35-year-old male who is brought in by EMS after being found under the influence next to a trash dumpster. Patient has no acute complaints and denies any fever, chills, shortness of breath, chest pain/palpitations. Related Data Allergies Allergy/AdvReac Type Severity Reaction Status Date / Time Penicillins [PENICILLINS] Allergy Severe SHORTNESS Verified 05/12/20 16:56 OF BREATH sulfamethoxazole Allergy Severe HIVES Verified 05/12/20 16:56 [From BACTRIM] trimethoprim [From BACTRIM] Allergy Severe HIVES Verified 05/12/20 16:56 Review of Systems Review of Systems: Pertinent positives and negatives as stated in HPI 10 point review of systems is otherwise negative. [facility] Past Medical History Source: nursing notes reviewed Medical History ACL (anterior cruciate ligament) tear PCP abuse Social History Social History Alcohol intake: never Patient Tobacco Use Status: Tobacco use Unknown Substance Use Type: Hallucinogens Advance Directives: No Advance Directives Information Provided: Yes Physical Exam Vital Signs: Vital Signs: Last Vital Signs Temp 99.1 F 01/12/21 04:18 Pulse 100 01/12/21 04:18 Resp 20 01/12/21 04:18 BP 140/88 H 01/12/21 04:18 Pulse Ox 100 01/12/21 04:18 Body Mass Index 28.7 VITAL SIGNS: Reviewed. GENERAL: Well developed, well nourished, in no acute distress. HEAD: Normocephalic/atraumatic EYES: PERRLA, EOMI OROPHARYNX: no oral lesions noted, posterior pharynx clear NECK: Supple, no adenopathy LUNGS: Normal breath sounds. SpO2<100> CARDIOVASCULAR: Regular rate and rhythm without noted murmurs NEUROLOGIC: Drowsy but arousable Course Course Course Narrative: 35-year-old male with history and clinical presentation consistent with PCP intoxication. Patient was observed until clinically stable for discharge. No acute events during his stay. Discharge Plan Discharge Clinical Impression: Substance use Patient Disposition: Home, Self-Care Instructions: Polysubstance Abuse (ED) Additional Instructions: Return to the ER for acute worsening of symptoms. Interventions: ED Discharge Assessment Last Done: 01/12/21 06:05 Discharge Date/Time: 01/12/21 06:07
== END 2021-01-12 06:07 | disposition home or self-care (01) ==
PROVIDERS: Emergency Provider Student in an Organized Health Care Education/Training Program
DX: F19.90 Other psychoactive substance use, unspecified, uncomplicated (principal)
CPT/HCPCS: 99283

== ENCOUNTER 2021-01-13 17:27 | Emergency (ER) | payer MEDICAID, SELFPAY ==
--- NOTE | 2021-01-13 17:31 | ED_ITS ---
HPI - Psych General Chief Complaint: Overdose Stated Complaint: drug abuse Time Seen by Provider: 01/13/21 17:31 Source: patient and EMS Mode of arrival: EMS Limitations: other (intoxicates) History of Present Illness MD complaint: substance abuse Onset (ago): hour(s) Duration: constant History of same: Yes Relieving factors: none Exacerbating factors: drug use Context: recent drug abuse (uses PCP) Associated psychiatric symptoms: none Associated symptoms: denies other symptoms Treatments prior to arrival: none Related Data Allergies Allergy/AdvReac Type Severity Reaction Status Date / Time Penicillins [PENICILLINS] Allergy Severe SHORTNESS Verified 05/12/20 16:56 OF BREATH sulfamethoxazole Allergy Severe HIVES Verified 05/12/20 16:56 [From BACTRIM] trimethoprim [From BACTRIM] Allergy Severe HIVES Verified 05/12/20 16:56 Review of Systems Review of Systems: ROS unable to be obtained due to altered mental status/PCP use [facility] Past Medical History Attestation statement: The following information was validated with the patient. Medical History ACL (anterior cruciate ligament) tear PCP abuse Social History Social History Alcohol intake: never Patient Tobacco Use Status: Tobacco use Unknown Substance Use Type: Hallucinogens Advance Directives: No Advance Directives Information Provided: Yes Physical Exam Vital Signs: Vital Signs: Last Vital Signs Temp 97.9 F 01/13/21 18:36 Pulse 86 01/13/21 18:36 Resp 18 01/13/21 18:36 BP 170/74 H 01/13/21 18:36 Pulse Ox 97 01/13/21 18:36 Body Mass Index 29.4 Appearance: Alert. Oriented X3. No acute distress. very calm and cooperative Eyes: Pupils equal, round and reactive to light. no nystagmus ENT: Pharynx normal. Neck: Normal inspection. Neck supple. CVS: Normal heart rate and rhythm. Pulses normal. Respiratory: No respiratory distress. Breath sounds normal. Abdomen: Soft and non-tender. Skin: Skin warm and dry. Normal skin color. Normal skin turgor. Extremities: No lower extremity edema. Neuro: Oriented X 3. No motor deficit. No sensory deficit. Calm and cooperative Course Course Course Narrative: steady gait walking around GCS 15, calm and cooperative MDM - Psych MDM Narrative Medical decision making narrative: 35 yo male well known to use for PCP abuse but he is always calm and cooperative, he does not have SI or aggression, will observe until he has a ride home. Discharge Plan Discharge Clinical Impression: PCP abuse Patient Disposition: Home, Self-Care Instructions: Polysubstance Abuse (ED) Additional Instructions: return to ED for any worsening symptoms or concerns
[2021-01-13 17:35] VITALS: BP 150/82; PULSE 84; O2SAT 97
[2021-01-13 18:36] VITALS: BP 170/74; PULSE 86; RESP 18; TEMP 36.6; O2SAT 97; BMI 29.4
== END 2021-01-13 19:50 | disposition home or self-care (01) ==
PROVIDERS: Emergency Provider Emergency Medicine
DX: F16.10 Hallucinogen abuse, uncomplicated (principal)
CPT/HCPCS: 99283

== ENCOUNTER 2021-01-14 01:58 | Emergency (ER) | payer MEDICAID, SELFPAY ==
[2021-01-14] VITALS (8 sets, daily range): BP systolic 98–119; BP diastolic 65–90; PULSE 66–91; RESP 13–20; TEMP 36.9–37; O2SAT 94–100; BMI 33.2
--- NOTE | ~2021-01-14 | CT_ITS ---
EXAMINATION: CT HEAD WITHOUT CONTRAST CLINICAL INFORMATION: Altered mental status COMPARISON: 04/14/2018 TECHNIQUE: Contiguous axial imaging was performed from the skull base to vertex without intravenous administration of contrast. This CT examination was performed using dose optimization techniques as appropriate, variously including the following: *Automated exposure control *Adjustment of mA and/or kV according to patient size (this includes techniques or standardized protocols for targeted exams where dose is matched to indication/reason for exam; i.e. extremities or head) *Use of iterative reconstruction technique DLP: 988 mGy-cm FINDINGS: There is no evidence of acute intracranial hemorrhage or territorial infarction. No abnormal mass effect or midline shift is seen. [place] to white matter differentiation is well preserved. No extra-axial fluid collections are identified. The ventricles are normal in size. There is no abnormal attenuation within the brain parenchyma. The osseous structures and soft tissues are normal. There is mucosal thickening of the ethmoid air cells bilaterally. The mastoid air cells are well-aerated. CT/CT head/brain wo con IMPRESSION: No acute intracranial pathology.
--- NOTE | 2021-01-14 02:59 | PC.NURSE ---
Pt difficult to arouse in bed, eyes rolling back into his head with slurred speech. MD aware. Pt denies drug use at this time. Pt assisted up and into the bathroom to provide urine sample. Pt transferred into room 17 for O2 sat monitoring. Urine sample obtained and sent.
--- NOTE | 2021-01-14 03:02 | PC.NURSE ---
Pt unable to provide urine sample at this time.
[2021-01-14 04:41] LABS: COVID-19 Test Negative (Negative)
[2021-01-14] MEDS: ondansetron HCL 4 MG/2 ML VIAL IVPUSH ×2 (04:42→05:40)
[2021-01-14] MEDS: Naloxone HCl Nasal 4 MG SPRAY NOSTRILALT ×2 (04:42→05:14)
--- NOTE | 2021-01-14 04:44 | PC.NURSE ---
This RN noted pt to have O2 sat as low as 79% and came to bedside. Pt arousable with painful stimuli. Dr Ko and Pauline RN to bedside. Pt medicated with nasal narcan, placed on rn clinical. Pt NSR, VSS. Pt began gagging after narcan and provided zofran for relief of nausea. Pt remains on rn clinical. VSS on RA at this time. Pt stretcher in lowest locked position, rails raised, call barrett within reach.
--- NOTE | 2021-01-14 04:47 | ECG_ITS ---
Test Reason : cp Blood Pressure : / mmHG Vent. Rate : 065 BPM Atrial Rate : 065 BPM P-R Int : 142 ms QRS Dur : 110 ms QT Int : 404 ms P-R-T Axes : 018 030 021 degrees QTc Int : 420 ms Normal sinus rhythm Brugada pattern, type 1 RSR' or QR pattern in V1 suggests right ventricular conduction delay Abnormal ECG No previous ECGs available Referred By: Wen Ko Electronically Signed By:BRAVO VILLALOBOS MD
[2021-01-14 05:02] LABS: Basophils Absolute Auto 0.1 X10*3/uL (0.0-0.2); Basophils Percent Auto 0.7 % (0-2); Eosinophils Absolute Auto 0.5 X10*3/uL (0.0-0.4); Eosinophils Percent Auto 4.8 % (0-4); Hematocrit 44.1 % (42.0-52.0); Hemoglobin 14.6 g/dl (14.0-18.0); Imm Gran Abs Auto 0.03 X10*3/uL (0.00-0.03); Imm Gran Pct Auto 0.3 % (0.0-0.4); Lymphocytes Absolute Auto 4.1 X10*3/uL (1.2-4.9); Mean Corpuscular HGB Conc 33.1 g/dl (31.0-36.0); Mean Corpuscular Hemoglobin 30.3 pg (27.0-33.0); Mean Corpuscular Volume 91.5 fL (80.0-98.0); Mean Platelet Volume 9.9 fL (9.4-12.4); Monocytes Absolute Auto 0.7 X10*3/uL (0.1-1.2); Monocytes Percent Auto 7.3 % (2-11); Neutrophils Absolute Auto 4.3 x10*3/uL (2.0-8.3); Neutrophils Percent Auto 44.9 % (45-73); Platelet Count 325 X10*3/uL (160-400); Red Blood Count 4.82 X10*6/uL (4.60-5.80); Red Cell Distribution Width 12.6 % (11.0-16.0); White Blood Count 9.7 X10*3/uL (4.8-10.8)
[2021-01-14 05:03] LABS: MANUAL DIFF FLAG NO
--- NOTE | 2021-01-14 05:09 | ED_ITS ---
HPI - General Adult General Chief complaint: Psychiatric Symptoms Stated complaint: Per PT - needs help with thoughts Time Seen by Provider: 01/14/21 04:35 Source: patient Mode of arrival: ambulatory History of Present Illness HPI narrative: 35-year-old male who presents with known history recurrent PCP use and presents stating that he wants detox and no longer wishes to use drugs. He states that he is depressed and sometimes feels like killing himself although currently denies any plans or current suicidal or homicidal ideation. Related Data Allergies Allergy/AdvReac Type Severity Reaction Status Date / Time Penicillins [PENICILLINS] Allergy Severe SHORTNESS Verified 05/12/20 16:56 OF BREATH sulfamethoxazole Allergy Severe HIVES Verified 05/12/20 16:56 [From BACTRIM] trimethoprim [From BACTRIM] Allergy Severe HIVES Verified 05/12/20 16:56 Review of Systems Review of Systems: Pertinent positives and negatives as stated in HPI 10 point review of systems is otherwise negative. PMFSH Past Medical History Source: nursing notes reviewed Medical History ACL (anterior cruciate ligament) tear PCP abuse Social History Social History Alcohol intake: never Patient Tobacco Use Status: Tobacco use Unknown Substance Use Type: Hallucinogens Advance Directives: No Advance Directives Information Provided: Yes Physical Exam Vital Signs: Vital Signs: Last Vital Signs Temp 98.4 F 01/14/21 04:39 Pulse 69 01/14/21 09:02 Resp 15 01/14/21 06:41 BP 98/66 01/14/21 09:02 Pulse Ox 99 01/14/21 09:02 Body Mass Index 33.2 VITAL SIGNS: Reviewed. GENERAL: Well developed, well nourished, in no acute distress. HEAD: Normocephalic/atraumatic EYES: PERRLA, EOMI EARS: Ext canals without abnormality, TMs non-bulging and non-erythematous NOSE: Nares patent bilateral OROPHARYNX: no oral lesions noted, posterior pharynx clear NECK: Supple, no adenopathy LUNGS: Normal breath sounds. No adventitious sounds or accessory muscle use. SpO2<97> CARDIOVASCULAR: Regular rate and rhythm without noted murmurs ABDOMEN: Soft, non-tender, non-distended with bowel sounds. MUSCULOSKELETAL: No tenderness, deformities, or effusions noted on gross inspection. EXTREMITIES: No cyanosis, clubbing or edema. SKIN: Inspection of the skin reveals no rashes NEUROLOGIC: Drowsy and oriented x 3. Strength and sensation to light touch were grossly intact x 4. Course Course Course Narrative: 35-year-old male with history and clinical presentation consistent with PCP dependence and requesting detox. Plan is to have him evaluated by the acetone recovery worker for possible placement in the morning. 0300: Patient was transferred in room 17 after he was noted to be difficult to arouse in bed. 0445: Notified by nursing that patient continues to have low oxygenation, patient arousable to painful stimuli decision made to give intranasal Narcan and placed on rn cardiac rehab with capnography. After patient received Narcan he received Zofran for nausea. Patient continued being relatively arousable but was noted to have pinpoint pupils. Clinically quite different from prior visits to the ER in so full laboratory workup was conducted to include CT of the head. On review of all investigations there are no acute findings to better explain patient's behavior and urine tox was only positive for his typical use of PCP. On review of the EKG there is evidence that initially consistent with Brugada type 1, but discussed with cardiology who states that this is typically associated with syncopal episode or DVT. Neither 1 of these conditions was present. Signed out to ONEYDA Bernal to discharge patient when clinically recovered, but to notify [employer]. Medical Decision Making Lab Data Result diagrams: 01/14/21 04:54 01/14/21 04:54 Labs: Lab Results 01/14/21 01/14/21 01/14/21 Range/Units 04:08 04:54 04:54 WBC 9.7 (4.8-10.8) X10*3/uL RBC 4.82 (4.60-5.80) X10*6/uL Hgb 14.6 (14.0-18.0) g/dl Hct 44.1 (42.0-52.0) % MCV 91.5 (80.0-98.0) fL MCH 30.3 (27.0-33.0) pg MCHC 33.1 (31.0-36.0) g/dl RDW 12.6 (11.0-16.0) % Plt Count 325 (160-400) X10*3/uL MPV 9.9 (9.4-12.4) fL Immature Gran % (Auto) 0.3 (0.0-0.4) % Neut % (Auto) 44.9 L (45-73) % Lymph % (Auto) 42.0 H (20-40) % Stevens % (Auto) 7.3 (2-11) % Eos % (Auto) 4.8 H (0-4) % Baso % (Auto) 0.7 (0-2) % Lymph # (Auto) 4.1 (1.2-4.9) X10*3/uL Stevens # (Auto) 0.7 (0.1-1.2) X10*3/uL Eos # (Auto) 0.5 H (0.0-0.4) X10*3/uL Baso # (Auto) 0.1 (0.0-0.2) X10*3/uL Abs Immat Gran (auto) 0.03 (0.00-0.03) X10*3/uL Absolute Neuts (auto) 4.3 (2.0-8.3) x10*3/uL Absolute Nucleated RBC 0.000 (0.0-0.012) X10*3/uL Nucleated RBC % (auto) 0.0 (0.0-0.2) /100WBC PT 11.1 (9.9-13.0) SEC INR 1.0 (0.9-1.1) VBG pH (7.32-7.43) VBG pCO2 mmHg VBG pO2 mmHg VBG HCO3 (22-26) mmol/L VBG O2 Saturation % VBG Base Excess mmol/L Sodium (135-145) mmol/L Potassium (3.3-5.1) mmol/L Chloride (96-108) mmol/L Carbon Dioxide (22-29) mmol/L Anion Gap (12-20) BUN (9-16) mg/dL Creatinine (0.5-1.4) mg/dL Estim Creat Clear Calc Estimated GFR POC Glucose (60-115) mg/dL Random Glucose (60-115) mg/dL Lactic Acid (0.5-2.0) mmol/L Calcium (8.4-10.2) mg/dL Total Bilirubin (0.0-1.0) mg/dL AST (5-37) U/L ALT (0-40) U/L Alkaline Phosphatase (39-117) U/L Total Protein (6.5-8.0) g/dL Albumin (3.5-5.0) g/dL Lipase (8-78) U/L Urine Color Urine Appearance Urine pH (5.0-8.0) Ur Specific [place] (1.005-1.025) Urine Protein (NEG-TRACE) MG/DL Urine Glucose (UA) (NEG) MG/DL Urine Ketones (NEG) MG/DL Urine Blood (NEG) Urine Nitrite (NEG) Ur Leukocyte Esterase (NEG) Salicylates (15-30) mg/dL Urine Opiates Screen (Not Detect) Urine Fentanyl Screen (Not Detect) Acetaminophen (<30) mcg/mL Ur Barbiturates Screen (Not Detect) Ur Phencyclidine Scrn (Not Detect) Ur Amphetamines Screen (Not Detect) U Benzodiazepines Scrn (Not Detect) Urine Cocaine Screen (Not Detect) U Marijuana (THC) Screen (Not Detect) Ethyl Alcohol mg/dL COVID-19 (ANNEL) Negative (Negative) COVID-19 Clin Com See Note 01/14/21 01/14/21 01/14/21 Range/Units 04:54 04:54 04:54 WBC (4.8-10.8) X10*3/uL RBC (4.60-5.80) X10*6/uL Hgb (14.0-18.0) g/dl Hct (42.0-52.0) % MCV (80.0-98.0) fL MCH (27.0-33.0) pg MCHC (31.0-36.0) g/dl RDW (11.0-16.0) % Plt Count (160-400) X10*3/uL MPV (9.4-12.4) fL Immature Gran % (Auto) (0.0-0.4) % Neut % (Auto) (45-73) % Lymph % (Auto) (20-40) % Stevens % (Auto) (2-11) % Eos % (Auto) (0-4) % Baso % (Auto) (0-2) % Lymph # (Auto) (1.2-4.9) X10*3/uL Stevens # (Auto) (0.1-1.2) X10*3/uL Eos # (Auto) (0.0-0.4) X10*3/uL Baso # (Auto) (0.0-0.2) X10*3/uL Abs Immat Gran (auto) (0.00-0.03) X10*3/uL Absolute Neuts (auto) (2.0-8.3) x10*3/uL Absolute Nucleated RBC (0.0-0.012) X10*3/uL Nucleated RBC % (auto) (0.0-0.2) /100WBC PT (9.9-13.0) SEC INR (0.9-1.1) VBG pH (7.32-7.43) VBG pCO2 mmHg VBG pO2 mmHg VBG HCO3 (22-26) mmol/L VBG O2 Saturation % VBG Base Excess mmol/L Sodium 139 (135-145) mmol/L Potassium 3.8 (3.3-5.1) mmol/L Chloride 104 (96-108) mmol/L Carbon Dioxide 30 H (22-29) mmol/L Anion Gap 9 L (12-20) BUN 15 (9-16) mg/dL Creatinine 0.80 (0.5-1.4) mg/dL Estim Creat Clear Calc 162.6 Estimated GFR > 60 POC Glucose (60-115) mg/dL Random Glucose 100 (60-115) mg/dL Lactic Acid 1.0 (0.5-2.0) mmol/L Calcium 9.1 (8.4-10.2) mg/dL Total Bilirubin 0.2 (0.0-1.0) mg/dL AST 18 (5-37) U/L ALT 27 (0-40) U/L Alkaline Phosphatase 53 (39-117) U/L Total Protein 6.5 (6.5-8.0) g/dL Albumin 4.0 (3.5-5.0) g/dL Lipase 42 (8-78) U/L Urine Color Urine Appearance Urine pH (5.0-8.0) Ur Specific [place] (1.005-1.025) Urine Protein (NEG-TRACE) MG/DL Urine Glucose (UA) (NEG) MG/DL Urine Ketones (NEG) MG/DL Urine Blood (NEG) Urine Nitrite (NEG) Ur Leukocyte Esterase (NEG) Salicylates < 5.0 L (15-30) mg/dL Urine Opiates Screen (Not Detect) Urine Fentanyl Screen (Not Detect) Acetaminophen < 1 (<30) mcg/mL Ur Barbiturates Screen (Not Detect) Ur Phencyclidine Scrn (Not Detect) Ur Amphetamines Screen (Not Detect) U Benzodiazepines Scrn (Not Detect) Urine Cocaine Screen (Not Detect) U Marijuana (THC) Screen (Not Detect) Ethyl Alcohol < 10 mg/dL COVID-19 (ANNEL) (Negative) COVID-19 Clin Com 01/14/21 01/14/21 01/14/21 Range/Units 05:06 05:10 05:10 WBC (4.8-10.8) X10*3/uL RBC (4.60-5.80) X10*6/uL Hgb (14.0-18.0) g/dl Hct (42.0-52.0) % MCV (80.0-98.0) fL MCH (27.0-33.0) pg MCHC (31.0-36.0) g/dl RDW (11.0-16.0) % Plt Count (160-400) X10*3/uL MPV (9.4-12.4) fL Immature Gran % (Auto) (0.0-0.4) % Neut % (Auto) (45-73) % Lymph % (Auto) (20-40) % Stevens % (Auto) (2-11) % Eos % (Auto) (0-4) % Baso % (Auto) (0-2) % Lymph # (Auto) (1.2-4.9) X10*3/uL Stevens # (Auto) (0.1-1.2) X10*3/uL Eos # (Auto) (0.0-0.4) X10*3/uL Baso # (Auto) (0.0-0.2) X10*3/uL Abs Immat Gran (auto) (0.00-0.03) X10*3/uL Absolute Neuts (auto) (2.0-8.3) x10*3/uL Absolute Nucleated RBC (0.0-0.012) X10*3/uL Nucleated RBC % (auto) (0.0-0.2) /100WBC PT (9.9-13.0) SEC INR (0.9-1.1) VBG pH (7.32-7.43) VBG pCO2 mmHg VBG pO2 mmHg VBG HCO3 (22-26) mmol/L VBG O2 Saturation % VBG Base Excess mmol/L Sodium (135-145) mmol/L Potassium (3.3-5.1) mmol/L Chloride (96-108) mmol/L Carbon Dioxide (22-29) mmol/L Anion Gap (12-20) BUN (9-16) mg/dL Creatinine (0.5-1.4) mg/dL Estim Creat Clear Calc Estimated GFR POC Glucose 87 (60-115) mg/dL Random Glucose (60-115) mg/dL Lactic Acid (0.5-2.0) mmol/L Calcium (8.4-10.2) mg/dL Total Bilirubin (0.0-1.0) mg/dL AST (5-37) U/L ALT (0-40) U/L Alkaline Phosphatase (39-117) U/L Total Protein (6.5-8.0) g/dL Albumin (3.5-5.0) g/dL Lipase (8-78) U/L Urine Color YELLOW Urine Appearance CLEAR Urine pH 6.5 (5.0-8.0) Ur Specific [place] 1.020 (1.005-1.025) Urine Protein NEG (NEG-TRACE) MG/DL Urine Glucose (UA) NEG (NEG) MG/DL Urine Ketones NEG (NEG) MG/DL Urine Blood NEG (NEG) Urine Nitrite NEG (NEG) Ur Leukocyte Esterase NEG (NEG) Salicylates (15-30) mg/dL Urine Opiates Screen Not Detected (Not Detect) Urine Fentanyl Screen Not Detected (Not Detect) Acetaminophen (<30) mcg/mL Ur Barbiturates Screen Not Detected (Not Detect) Ur Phencyclidine Scrn POSITIVE H (Not Detect) Ur Amphetamines Screen Not Detected (Not Detect) U Benzodiazepines Scrn Not Detected (Not Detect) Urine Cocaine Screen Not Detected (Not Detect) U Marijuana (THC) Screen Not Detected (Not Detect) Ethyl Alcohol mg/dL COVID-19 (ANNEL) (Negative) COVID-19 Clin Com 01/14/21 Range/Units 05:29 WBC (4.8-10.8) X10*3/uL RBC (4.60-5.80) X10*6/uL Hgb (14.0-18.0) g/dl Hct (42.0-52.0) % MCV (80.0-98.0) fL MCH (27.0-33.0) pg MCHC (31.0-36.0) g/dl RDW (11.0-16.0) % Plt Count (160-400) X10*3/uL MPV (9.4-12.4) fL Immature Gran % (Auto) (0.0-0.4) % Neut % (Auto) (45-73) % Lymph % (Auto) (20-40) % Stevens % (Auto) (2-11) % Eos % (Auto) (0-4) % Baso % (Auto) (0-2) % Lymph # (Auto) (1.2-4.9) X10*3/uL Stevens # (Auto) (0.1-1.2) X10*3/uL Eos # (Auto) (0.0-0.4) X10*3/uL Baso # (Auto) (0.0-0.2) X10*3/uL Abs Immat Gran (auto) (0.00-0.03) X10*3/uL Absolute Neuts (auto) (2.0-8.3) x10*3/uL Absolute Nucleated RBC (0.0-0.012) X10*3/uL Nucleated RBC % (auto) (0.0-0.2) /100WBC PT (9.9-13.0) SEC INR (0.9-1.1) VBG pH 7.43 (7.32-7.43) VBG pCO2 39 mmHg VBG pO2 96 mmHg VBG HCO3 26 (22-26) mmol/L VBG O2 Saturation 98.0 % VBG Base Excess 2.1 mmol/L Sodium (135-145) mmol/L Potassium (3.3-5.1) mmol/L Chloride (96-108) mmol/L Carbon Dioxide (22-29) mmol/L Anion Gap (12-20) BUN (9-16) mg/dL Creatinine (0.5-1.4) mg/dL Estim Creat Clear Calc Estimated GFR POC Glucose (60-115) mg/dL Random Glucose (60-115) mg/dL Lactic Acid (0.5-2.0) mmol/L Calcium (8.4-10.2) mg/dL Total Bilirubin (0.0-1.0) mg/dL AST (5-37) U/L ALT (0-40) U/L Alkaline Phosphatase (39-117) U/L Total Protein (6.5-8.0) g/dL Albumin (3.5-5.0) g/dL Lipase (8-78) U/L Urine Color Urine Appearance Urine pH (5.0-8.0) Ur Specific [place] (1.005-1.025) Urine Protein (NEG-TRACE) MG/DL Urine Glucose (UA) (NEG) MG/DL Urine Ketones (NEG) MG/DL Urine Blood (NEG) Urine Nitrite (NEG) Ur Leukocyte Esterase (NEG) Salicylates (15-30) mg/dL Urine Opiates Screen (Not Detect) Urine Fentanyl Screen (Not Detect) Acetaminophen (<30) mcg/mL Ur Barbiturates Screen (Not Detect) Ur Phencyclidine Scrn (Not Detect) Ur Amphetamines Screen (Not Detect) U Benzodiazepines Scrn (Not Detect) Urine Cocaine Screen (Not Detect) U Marijuana (THC) Screen (Not Detect) Ethyl Alcohol mg/dL COVID-19 (ANNEL) (Negative) COVID-19 Clin Com ECG Data Attestation: I personally reviewed and interpreted this ECG as follows: Prior ECG tracings: not available for review Interpretation: Normal sinus rhythm, HR-67, no STEMI, WA/QRS/QTC are within normal limits. Discharge Plan Discharge Clinical Impression: PCP abuse Patient Disposition: Still a Patient
[2021-01-14 05:10] LABS: Prothrombin Time 11.1 SEC (9.9-13.0)
[2021-01-14 05:13] LABS: Ethanol < 10 mg/dL
[2021-01-14 05:20] LABS: Alanine Aminotransferase 27 U/L (0-40); Alkaline Phosphatase 53 U/L (39-117); Anion Gap 9 (12-20); Aspartate Amino Transferase 18 U/L (5-37); Bilirubin Total 0.2 mg/dL (0.0-1.0); Blood Urea Nitrogen 15 mg/dL (9-16); Calcium 9.1 mg/dL (8.4-10.2); Carbon Dioxide 30 mmol/L (22-29); Chloride 104 mmol/L (96-108); Creatinine Clr Calc Pharmacy 162.6; Estimated Glomerular Filt Rate > 60; Glucose Random 100 mg/dL (60-115); Lipase 42 U/L (8-78); Potassium 3.8 mmol/L (3.3-5.1); Sodium 139 mmol/L (135-145); Total Protein 6.5 g/dL (6.5-8.0)
[2021-01-14 05:22] LABS: Appearance Urine CLEAR; Color Urine YELLOW; Glucose Urine UA NEG (NEG); Leukocyte Esterase Urine NEG (NEG); Nitrite Urine NEG (NEG); PH 6.5 (5.0-8.0); Urine Blood NEG (NEG); Urine Ketones NEG (NEG); Urine Protein NEG (NEG-TRACE)
[2021-01-14 05:22] LABS: Glucose, Whole Blood 87 mg/dL (60-115)
[2021-01-14 05:35] LABS: VBG Base Excess 2.1 mmol/L; VBG HCO3 26 mmol/L (22-26); VBG pCO2 39 mmHg; VBG pH 7.43 (7.32-7.43); VBG pO2 96 mmHg
[2021-01-14 05:35] LABS: Venous Blood Gas Refer to POC result
--- NOTE | 2021-01-14 05:37 | PC.NURSE ---
[employer] arriving at ED, reporting serious concerns regarding pt upon discharge due to some pretty serious warrants. [employer] requesting to be notified prior to discharge.
[2021-01-14] MEDS: Naloxone HCl 0.4 MG/ML VIAL 0.2 MG IVPUSH (05:41)
[2021-01-14 05:42] LABS: Amphetamine Screen Urine Not Detected (Not Detect); Barbiturates, Urine Not Detected (Not Detect); Benzodiazepines Screen Urine Not Detected (Not Detect); Cannabinoid Screen Urine Not Detected (Not Detect); Cocaine Screen Urine Not Detected (Not Detect); Fentanyl, urine Not Detected (Not Detect); Opiate Screen Urine Not Detected (Not Detect); Phencyclidine Screen Urine POSITIVE (Not Detect)
--- NOTE | 2021-01-14 06:07 | PC.NURSE ---
Pt returned to ED on cardiac cath technician with this RN without incidence. VSS on RA.
[2021-01-14 06:16] LABS: Salicylate < 5.0 mg/dL (15-30)
[2021-01-14 06:24] LABS: Acetaminophen LAB < 1 mcg/mL (<30)
--- NOTE | 2021-01-14 06:48 | PC.NURSE ---
PT is arousable to verbal stimuli at this time.
--- NOTE | 2021-01-14 10:14 | MHC.RECOVSUP ---
? Reason for consult:Recovery Support o Current location:ED 17 o Identified substance use concern: PCP - Overdose - Withdrawal - Support ? Intervention: o Community resources provided ? Plan: o Patient to follow up with [facility] after discharge ? Additional information:Patient became uncooperative. Patient was notified about his discharge and then refused to talk with me stating: I need help . He never spoke about what help he needed and then refused to talk.
--- NOTE | 2021-01-14 10:54 | PC.NURSE ---
sleeping and easily woken, has been speaking w brian padron and coach builder, resource list given, skin wpd, sr on monitor, nad
--- NOTE | 2021-01-14 11:02 | PC.NURSE ---
wakens but refuses to get out of bed, moved to the hallway and will re eval later
== END 2021-01-14 11:59 | disposition home or self-care (01) ==
PROVIDERS: Emergency Provider Student in an Organized Health Care Education/Training Program
DX: F16.10 Hallucinogen abuse, uncomplicated (principal); F33.1 Major depressive disorder, recurrent, moderate; R51.9 Headache, unspecified; Z20.822 Contact with and (suspected) exposure to COVID-19; Z79.899 Other long term (current) drug therapy; Z71.51 Drug abuse counseling and surveillance of drug abuser
CPT/HCPCS: 36415; 70450; 80053; 80143; 80179; 80307; 81003; 82077; 82803; 82947; 83605; 83690; 85025; 85610; 87040; 87635; 93005; 96374; 96375; 96376; 99284; J2405

== ENCOUNTER 2021-04-21 20:02 | Emergency (ER) | payer MEDICAID, SELFPAY ==
--- NOTE | 2021-04-21 20:31 | ED.AMS ---
HPI - Altered Mental Status General Chief Complaint: Altered Mental Status Stated Complaint: AMS,LETHARGIC ? SUBSTANCE USE PER EMS Time Seen by Provider: 04/21/21 20:15 Source: patient and EMS Mode of arrival: EMS History of Present Illness HPI narrative: Patient with frequent ED visits with history of PCP use [place] the [place] behaving erratically denies any hallucination or drug abuse but in the past been using PCP at this time patient has no hallucination delusion walking asking for the phone Related Data Allergies Allergy/AdvReac Type Severity Reaction Status Date / Time Penicillins [PENICILLINS] Allergy Severe SHORTNESS Verified 05/12/20 16:56 OF BREATH sulfamethoxazole Allergy Severe HIVES Verified 05/12/20 16:56 [From BACTRIM] trimethoprim [From BACTRIM] Allergy Severe HIVES Verified 05/12/20 16:56 Review of Systems Review of Systems: Yes all other systems are reviewed and are negative PMFSH Past Medical History Medical History ACL (anterior cruciate ligament) tear PCP abuse Social History Social History Alcohol intake: unknown Patient Tobacco Use Status: Tobacco use Unknown Use of substances other than those prescribed or required for medical reasons: Yes Substance Use Type: Hallucinogens Substance Use Type Other:: PCP Advance Directives: No Physical Exam ED Vital Signs: BMI result Body Mass Index 28.5 Appearance: Alert. Oriented X3. No acute distress. Eyes: PERRLA, No Nystagmus ENT: Pharynx normal. Oral Mucosa moist Neck: Normal inspection. Neck supple. CVS: Normal heart rate and rhythm. Pulses normal. Respiratory: No respiratory distress. Equal air entry bilateral, no wheezing/rales/rhonchi Abdomen: Soft and nontender. Bowel sounds are present, no mass palpable, no CVA tenderness Skin: Skin warm and dry. Normal skin color. Normal skin turgor. Extremities: No lower extremity edema. No calf tenderness Neuro: Oriented X 3. No motor deficit. No sensory deficit.No cerebellar signs , cranial nerves II-XII intact MDM - Altered Mental Status MDM Narrative Medical decision making narrative: Patient frequent ED visit with history of PCP use at this time vital stable discharge patient home patient refused to go for detox Discharge Plan Discharge Clinical Impression: PCP (phencyclidine) abuse Patient Disposition: Home, Self-Care Instructions: Polysubstance Abuse (ED) Additional Instructions: Stop using PCP and follow with detox Interventions: ED Discharge Assessment Last Done: 04/21/21 20:39 Discharge Date/Time: 04/21/21 20:41
[2021-04-21 20:32] VITALS: BP 170/60; PULSE 110; O2SAT 95; BMI 28.5
[2021-04-21 20:38] VITALS: BP 149/84; PULSE 110; RESP 16; TEMP 36.1; O2SAT 94
--- NOTE | 2021-04-21 20:39 | PC.NURSE ---
Assisting primary RN- vitals as charted, pt evaluted by MD Staton and discharged, no PIV. Ambulatory w/ steady gait out of dept
== END 2021-04-21 20:41 | disposition home or self-care (01) ==
PROVIDERS: Emergency Provider Internal Medicine
DX: R41.82 Altered mental status, unspecified (principal); F16.10 Hallucinogen abuse, uncomplicated; Z71.51 Drug abuse counseling and surveillance of drug abuser
CPT/HCPCS: 99282; 99283

== ENCOUNTER 2021-04-24 00:28 | Emergency (ER) | payer MEDICAID, SELFPAY ==
--- NOTE | 2021-04-24 00:50 | ECG_ITS ---
Test Reason : CHEST PAIN Blood Pressure : / mmHG Vent. Rate : 076 BPM Atrial Rate : 076 BPM P-R Int : 152 ms QRS Dur : 158 ms QT Int : 424 ms P-R-T Axes : 096 -65 016 degrees QTc Int : 477 ms Sinus rhythm with frequent , and consecutive Premature ventricular complexes Right bundle branch block Left anterior fascicular block Bifascicular block Abnormal ECG When compared with ECG of 14-JAN-2021 05:07, Premature ventricular complexes are now Present (RBBB and left anterior fascicular block) is now Present Referred By: Saran Bishop Electronically Signed By:LUIS SIGALA
[2021-04-24] MEDS: LORazepam 2 MG/ML VIAL 4 MG IM (01:00)
[2021-04-24] MEDS: Haloperidol Lactate 5 MG/ML VIAL 10 MG IM (01:00)
[2021-04-24 05:26] LABS: Basophils Absolute Auto 0.1 X10*3/uL (0.0-0.2); Basophils Percent Auto 0.7 % (0-2); Eosinophils Absolute Auto 0.4 X10*3/uL (0.0-0.4); Eosinophils Percent Auto 4.4 % (0-4); Hematocrit 42.1 % (42.0-52.0); Hemoglobin 13.9 g/dl (14.0-18.0); Imm Gran Abs Auto 0.02 X10*3/uL (0.00-0.03); Imm Gran Pct Auto 0.2 % (0.0-0.4); Lymphocytes Percent Auto 33.7 % (20-40); MANUAL DIFF FLAG NO; Mean Corpuscular Hemoglobin 29.5 pg (27.0-33.0); Mean Corpuscular Volume 89.4 fL (80.0-98.0); Mean Platelet Volume 10.4 fL (9.4-12.4); Monocytes Absolute Auto 0.8 X10*3/uL (0.1-1.2); Monocytes Percent Auto 8.9 % (2-11); Neutrophils Absolute Auto 4.7 x10*3/uL (2.0-8.3); Neutrophils Percent Auto 52.1 % (45-73); Platelet Count 377 X10*3/uL (160-400); Red Blood Count 4.71 X10*6/uL (4.60-5.80); Red Cell Distribution Width 12.6 % (11.0-16.0)
--- NOTE | 2021-04-24 05:36 | ED.GENADULT ---
HPI - General Adult General Chief complaint: ETOH/Substance Use <Saran Bishop MD - Last Filed: 04/24/21 06:17> Stated complaint: etoh/PCP <Saran Bishop MD - Last Filed: 04/24/21 06:17> Time Seen by Provider: 04/24/21 00:49 <Saran Bishop MD - Last Filed: 04/24/21 06:17> Source: EMS <Saran Bishop MD - Last Filed: 04/24/21 06:17> Mode of arrival: EMS <Saran Bishop MD - Last Filed: 04/24/21 06:17> Limitations: altered mental status <Saran Bishop MD - Last Filed: 04/24/21 06:17> History of Present Illness HPI narrative: Patient presents via EMS and police with agitation after doing drugs, likely PCP <Saran Bishop MD - Last Filed: 04/24/21 06:17> Onset (ago): minute(s) <Saran Bishop MD - Last Filed: 04/24/21 06:17> Severity: severe <Saran Bishop MD - Last Filed: 04/24/21 06:17> Related Data Allergies/adverse reactions: Allergies Allergy/AdvReac Type Severity Reaction Status Date / Time Penicillins [PENICILLINS] Allergy Severe SHORTNESS Verified 05/12/20 16:56 OF BREATH sulfamethoxazole Allergy Severe HIVES Verified 05/12/20 16:56 [From BACTRIM] trimethoprim [From BACTRIM] Allergy Severe HIVES Verified 05/12/20 16:56 <Saran Bishop MD - Last Filed: 04/24/21 06:17> Review of Systems Review of Systems: Yes Unobtainable due to mental status <Saran Bishop MD - Last Filed: 04/24/21 06:17> Constitutional: Constitutional: Reports no additional constitutional complaints <Saran Bishop MD - Last Filed: 04/24/21 06:17> Eyes: Eyes: Reports no additional eye complaints <Saran Bishop MD - Last Filed: 04/24/21 06:17> ENT: Denies dizziness <Saran Bishop MD - Last Filed: 04/24/21 06:17> Cardiovascular: Cardiovascular: Reports no additional cardiovascular complaints <Saran Bishop MD - Last Filed: 04/24/21 06:17> Respiratory: Respiratory: Reports as per HPI <Saran Bishop MD - Last Filed: 04/24/21 06:17> Gastrointestinal: Gastrointestinal: Reports no additional gastrointestinal complaints <Saran Bishop MD - Last Filed: 04/24/21 06:17> Musculoskeletal: Musculoskeletal: Reports no additional musculoskeletal complaints <Saran Bishop MD - Last Filed: 04/24/21 06:17> Integumentary/Breasts: Skin/Breast: Denies rash <Saran Bishop MD - Last Filed: 04/24/21 06:17> Neurologic: Reports system reviewed and no additional complaints, except as documented, Denies dizziness and Denies Sensory deficit (Neuro) <Saran Bishop MD - Last Filed: 04/24/21 06:17> Psychiatric: Psychiatric: Denies anxiety <Saran Bishop MD - Last Filed: 04/24/21 06:17> [facility] Past Medical History Medical History: Medical History ACL (anterior cruciate ligament) tear PCP abuse <Saran Bishop MD - Last Filed: 04/24/21 06:17> Social History Social History: Social History Alcohol intake: unknown Patient Tobacco Use Status: Tobacco use Unknown Use of substances other than those prescribed or required for medical reasons: Yes Substance Use Type: Hallucinogens Substance Use Type Other:: PCP Advance Directives: No <Saran Bishop MD - Last Filed: 04/24/21 06:17> Physical Exam ED Vital Signs: Vital Signs - 24 hr 04/24/21 07:39 04/24/21 11:47 04/24/21 14:00 Pulse Rate 74 81 Respiratory Rate 18 16 Blood Pressure 120/76 144/84 H Pulse Oximetry 100 96 04/24/21 16:00 Pulse Rate Respiratory Rate 16 Blood Pressure Pulse Oximetry <Saran Bishop MD - Last Filed: 04/24/21 06:17> Vital Signs - 24 hr 04/24/21 07:39 04/24/21 11:47 04/24/21 14:00 Pulse Rate 74 81 Respiratory Rate 18 16 Blood Pressure 120/76 144/84 H Pulse Oximetry 100 96 04/24/21 16:00 Pulse Rate Respiratory Rate 16 Blood Pressure Pulse Oximetry <Vane Ash MD - Last Filed: 04/24/21 15:24> Vital Signs - 24 hr 04/24/21 07:39 04/24/21 11:47 04/24/21 14:00 Pulse Rate 74 81 Respiratory Rate 18 16 Blood Pressure 120/76 144/84 H Pulse Oximetry 100 96 04/24/21 16:00 Pulse Rate Respiratory Rate 16 Blood Pressure Pulse Oximetry <Aureliano Staton MD - Last Filed: 04/24/21 18:10> Const Other: obese, agitated screaming. <Saran Bishop MD - Last Filed: 04/24/21 06:17> Orientation/consciousness: oriented to person <Saran Bishop MD - Last Filed: 04/24/21 06:17> Limitations: no limitations <Saran Bishop MD - Last Filed: 04/24/21 06:17> HENMT Head: Yes normal to inspection <Saran Bishop MD - Last Filed: 04/24/21 06:17> Ears: external ears normal <Saran Bishop MD - Last Filed: 04/24/21 06:17> General nose exam: Normal external nose present <Saran Bishop MD - Last Filed: 04/24/21 06:17> Mouth: Normal oral and palatal mucosa present and oropharynx normal <Saran Bishop MD - Last Filed: 04/24/21 06:17> Throat: Yes posterior oropharynx normal <Saran Bishop MD - Last Filed: 04/24/21 06:17> Eyes General: appearance normal, both eyes and all related structures <Saran Bishop MD - Last Filed: 04/24/21 06:17> Neck Neck: Yes normal visual inspection <Saran Bishop MD - Last Filed: 04/24/21 06:17> Chest Chest palpation & inspection: normal inspection of the chest <Saran Bishop MD - Last Filed: 04/24/21 06:17> Resp Auscultation: clear to auscultation bilaterally <Saran Bishop MD - Last Filed: 04/24/21 06:17> Cardio Jugular venous distension: no JVD <Saran Bishop MD - Last Filed: 04/24/21 06:17> Rate: regular rate <Saran Bishop MD - Last Filed: 04/24/21 06:17> Rhythm: regular rhythm <Saran Bishop MD - Last Filed: 04/24/21 06:17> Heart sounds: S1 normal heart sound present and S2 normal heart sound present <Saran Bishop MD - Last Filed: 04/24/21 06:17> GI Inspection: Yes normal to inspection <Saran Bishop MD - Last Filed: 04/24/21 06:17> Palpation (GI): Soft to palpation, nontender and No hepatosplenomegaly present <Saran Bishop MD - Last Filed: 04/24/21 06:17> Auscultation: normal bowel sounds <Saran Bishop MD - Last Filed: 04/24/21 06:17> General: Yes no CVA tenderness <Saran Bishop MD - Last Filed: 04/24/21 06:17> Back/Spine/Pelvis Back: no CVA tenderness <Saran Bishop MD - Last Filed: 04/24/21 06:17> Skin General skin exam: no rashes or lesions noted <Saran Bishop MD - Last Filed: 04/24/21 06:17> Neuro General: oriented to person <Saran Bishop MD - Last Filed: 04/24/21 06:17> Cranial nerves: Yes CN's II-XII intact bilaterally <Saran Bishop MD - Last Filed: 04/24/21 06:17> Motor exam (neuro): 5/5 motor strength present throughout <Saran Bishop MD - Last Filed: 04/24/21 06:17> Sensory Exam: No Sensory deficit (Neuro) <Saran Bishop MD - Last Filed: 04/24/21 06:17> Extrem General: Yes normal to inspection <Saran Bishop MD - Last Filed: 04/24/21 06:17> Psych Other: agitated <Saran Bishop MD - Last Filed: 04/24/21 06:17> Course Reevaluation(s) Reevaluation #1: patient hydrated will repeat chemistry and check renal function and CPK <Saran Bishop MD - Last Filed: 04/24/21 06:17> Time: 06:17 <Saran Bishop MD - Last Filed: 04/24/21 06:17> Reevaluation #2: I assumed care for this patient at 06:30, sign-out from Dr. Bishop, 35 years old male came in with agitation and being belligerent, patient had a history of polysubstance abuse, today's U tox is positive for PCP and cocaine, patient required sedation, found to have elevated CPK with normal renal function, patient received 4 L of normal saline awaiting for repeat chemistry and CPK. Patient was signed to Dr. Statno to check on the blood workup and dispo accordingly. <Vane Ash MD - Last Filed: 04/24/21 15:24> Time: 15:19 <Vane Ash MD - Last Filed: 04/24/21 15:24> Reevaluation #3: Patient refused to have blood draw and eloped from the ER with his mother <Aureliano Staton MD - Last Filed: 04/24/21 18:10> Medical Decision Making Lab Data Result diagrams: : 04/24/21 01:17 04/24/21 08:09 <Saran Bishop MD - Last Filed: 04/24/21 06:17> Labs: Lab Results 04/24/21 04/24/21 04/24/21 Range/Units 01:17 01:17 08:09 WBC 9.0 (4.8-10.8) X10*3/uL RBC 4.71 (4.60-5.80) X10*6/uL Hgb 13.9 L (14.0-18.0) g/dl Hct 42.1 (42.0-52.0) % MCV 89.4 (80.0-98.0) fL MCH 29.5 (27.0-33.0) pg MCHC 33.0 (31.0-36.0) g/dl RDW 12.6 (11.0-16.0) % Plt Count 377 (160-400) X10*3/uL MPV 10.4 (9.4-12.4) fL Immature Gran % (Auto) 0.2 (0.0-0.4) % Neut % (Auto) 52.1 (45-73) % Lymph % (Auto) 33.7 (20-40) % Ray % (Auto) 8.9 (2-11) % Eos % (Auto) 4.4 H (0-4) % Baso % (Auto) 0.7 (0-2) % Lymph # (Auto) 3.0 (1.2-4.9) X10*3/uL Ray # (Auto) 0.8 (0.1-1.2) X10*3/uL Eos # (Auto) 0.4 (0.0-0.4) X10*3/uL Baso # (Auto) 0.1 (0.0-0.2) X10*3/uL Abs Immat Gran (auto) 0.02 (0.00-0.03) X10*3/uL Absolute Neuts (auto) 4.7 (2.0-8.3) x10*3/uL Absolute Nucleated RBC 0.000 (0.0-0.012) X10*3/uL Nucleated RBC % (auto) 0.0 (0.0-0.2) /100WBC Sodium 140 141 (135-145) mmol/L Potassium 3.5 4.0 (3.3-5.1) mmol/L Chloride 106 108 (96-108) mmol/L Carbon Dioxide 24 25 (22-29) mmol/L Anion Gap 14 12 (12-20) BUN 18 H 16 (9-16) mg/dL Creatinine 1.14 0.87 (0.5-1.4) mg/dL Estim Creat Clear Calc TNP TNP Estimated GFR > 60 > 60 Random Glucose 104 83 (60-115) mg/dL Calcium 8.9 8.2 L D (8.4-10.2) mg/dL Total Creatine Kinase 1105 H 826 H (38-174) U/L Urine Color Urine Appearance Urine pH (5.0-8.0) Ur Specific [place] (1.005-1.025) Urine Protein (NEG-TRACE) MG/DL Urine Glucose (UA) (NEG) MG/DL Urine Ketones (NEG) MG/DL Urine Blood (NEG) Urine Nitrite (NEG) Ur Leukocyte Esterase (NEG) Urine Opiates Screen (Not Detect) Urine Fentanyl Screen (Not Detect) Ur Barbiturates Screen (Not Detect) Ur Phencyclidine Scrn (Not Detect) Ur Amphetamines Screen (Not Detect) U Benzodiazepines Scrn (Not Detect) Urine Cocaine Screen (Not Detect) U Marijuana (THC) Screen (Not Detect) 04/24/21 04/24/21 Range/Units 11:00 11:00 WBC (4.8-10.8) X10*3/uL RBC (4.60-5.80) X10*6/uL Hgb (14.0-18.0) g/dl Hct (42.0-52.0) % MCV (80.0-98.0) fL MCH (27.0-33.0) pg MCHC (31.0-36.0) g/dl RDW (11.0-16.0) % Plt Count (160-400) X10*3/uL MPV (9.4-12.4) fL Immature Gran % (Auto) (0.0-0.4) % Neut % (Auto) (45-73) % Lymph % (Auto) (20-40) % Ray % (Auto) (2-11) % Eos % (Auto) (0-4) % Baso % (Auto) (0-2) % Lymph # (Auto) (1.2-4.9) X10*3/uL Ray # (Auto) (0.1-1.2) X10*3/uL Eos # (Auto) (0.0-0.4) X10*3/uL Baso # (Auto) (0.0-0.2) X10*3/uL Abs Immat Gran (auto) (0.00-0.03) X10*3/uL Absolute Neuts (auto) (2.0-8.3) x10*3/uL Absolute Nucleated RBC (0.0-0.012) X10*3/uL Nucleated RBC % (auto) (0.0-0.2) /100WBC Sodium (135-145) mmol/L Potassium (3.3-5.1) mmol/L Chloride (96-108) mmol/L Carbon Dioxide (22-29) mmol/L Anion Gap (12-20) BUN (9-16) mg/dL Creatinine (0.5-1.4) mg/dL Estim Creat Clear Calc Estimated GFR Random Glucose (60-115) mg/dL Calcium (8.4-10.2) mg/dL Total Creatine Kinase (38-174) U/L Urine Color YELLOW Urine Appearance CLEAR Urine pH 6.0 (5.0-8.0) Ur Specific [place] 1.025 (1.005-1.025) Urine Protein NEG (NEG-TRACE) MG/DL Urine Glucose (UA) NEG (NEG) MG/DL Urine Ketones 15 (NEG) MG/DL Urine Blood NEG (NEG) Urine Nitrite NEG (NEG) Ur Leukocyte Esterase NEG (NEG) Urine Opiates Screen Not Detected (Not Detect) Urine Fentanyl Screen Not Detected (Not Detect) Ur Barbiturates Screen Not Detected (Not Detect) Ur Phencyclidine Scrn POSITIVE H (Not Detect) Ur Amphetamines Screen Not Detected (Not Detect) U Benzodiazepines Scrn Not Detected (Not Detect) Urine Cocaine Screen POSITIVE H (Not Detect) U Marijuana (THC) Screen Not Detected (Not Detect) <Saran Bishop MD - Last Filed: 04/24/21 06:17> Lab Results 04/24/21 04/24/21 04/24/21 Range/Units 01:17 01:17 08:09 WBC 9.0 (4.8-10.8) X10*3/uL RBC 4.71 (4.60-5.80) X10*6/uL Hgb 13.9 L (14.0-18.0) g/dl Hct 42.1 (42.0-52.0) % MCV 89.4 (80.0-98.0) fL MCH 29.5 (27.0-33.0) pg MCHC 33.0 (31.0-36.0) g/dl RDW 12.6 (11.0-16.0) % Plt Count 377 (160-400) X10*3/uL MPV 10.4 (9.4-12.4) fL Immature Gran % (Auto) 0.2 (0.0-0.4) % Neut % (Auto) 52.1 (45-73) % Lymph % (Auto) 33.7 (20-40) % Ray % (Auto) 8.9 (2-11) % Eos % (Auto) 4.4 H (0-4) % Baso % (Auto) 0.7 (0-2) % Lymph # (Auto) 3.0 (1.2-4.9) X10*3/uL Ray # (Auto) 0.8 (0.1-1.2) X10*3/uL Eos # (Auto) 0.4 (0.0-0.4) X10*3/uL Baso # (Auto) 0.1 (0.0-0.2) X10*3/uL Abs Immat Gran (auto) 0.02 (0.00-0.03) X10*3/uL Absolute Neuts (auto) 4.7 (2.0-8.3) x10*3/uL Absolute Nucleated RBC 0.000 (0.0-0.012) X10*3/uL Nucleated RBC % (auto) 0.0 (0.0-0.2) /100WBC Sodium 140 141 (135-145) mmol/L Potassium 3.5 4.0 (3.3-5.1) mmol/L Chloride 106 108 (96-108) mmol/L Carbon Dioxide 24 25 (22-29) mmol/L Anion Gap 14 12 (12-20) BUN 18 H 16 (9-16) mg/dL Creatinine 1.14 0.87 (0.5-1.4) mg/dL Estim Creat Clear Calc TNP TNP Estimated GFR > 60 > 60 Random Glucose 104 83 (60-115) mg/dL Calcium 8.9 8.2 L D (8.4-10.2) mg/dL Total Creatine Kinase 1105 H 826 H (38-174) U/L Urine Color Urine Appearance Urine pH (5.0-8.0) Ur Specific [place] (1.005-1.025) Urine Protein (NEG-TRACE) MG/DL Urine Glucose (UA) (NEG) MG/DL Urine Ketones (NEG) MG/DL Urine Blood (NEG) Urine Nitrite (NEG) Ur Leukocyte Esterase (NEG) Urine Opiates Screen (Not Detect) Urine Fentanyl Screen (Not Detect) Ur Barbiturates Screen (Not Detect) Ur Phencyclidine Scrn (Not Detect) Ur Amphetamines Screen (Not Detect) U Benzodiazepines Scrn (Not Detect) Urine Cocaine Screen (Not Detect) U Marijuana (THC) Screen (Not Detect) 04/24/21 04/24/21 Range/Units 11:00 11:00 WBC (4.8-10.8) X10*3/uL RBC (4.60-5.80) X10*6/uL Hgb (14.0-18.0) g/dl Hct (42.0-52.0) % MCV (80.0-98.0) fL MCH (27.0-33.0) pg MCHC (31.0-36.0) g/dl RDW (11.0-16.0) % Plt Count (160-400) X10*3/uL MPV (9.4-12.4) fL Immature Gran % (Auto) (0.0-0.4) % Neut % (Auto) (45-73) % Lymph % (Auto) (20-40) % Ray % (Auto) (2-11) % Eos % (Auto) (0-4) % Baso % (Auto) (0-2) % Lymph # (Auto) (1.2-4.9) X10*3/uL Ray # (Auto) (0.1-1.2) X10*3/uL Eos # (Auto) (0.0-0.4) X10*3/uL Baso # (Auto) (0.0-0.2) X10*3/uL Abs Immat Gran (auto) (0.00-0.03) X10*3/uL Absolute Neuts (auto) (2.0-8.3) x10*3/uL Absolute Nucleated RBC (0.0-0.012) X10*3/uL Nucleated RBC % (auto) (0.0-0.2) /100WBC Sodium (135-145) mmol/L Potassium (3.3-5.1) mmol/L Chloride (96-108) mmol/L Carbon Dioxide (22-29) mmol/L Anion Gap (12-20) BUN (9-16) mg/dL Creatinine (0.5-1.4) mg/dL Estim Creat Clear Calc Estimated GFR Random Glucose (60-115) mg/dL Calcium (8.4-10.2) mg/dL Total Creatine Kinase (38-174) U/L Urine Color YELLOW Urine Appearance CLEAR Urine pH 6.0 (5.0-8.0) Ur Specific [place] 1.025 (1.005-1.025) Urine Protein NEG (NEG-TRACE) MG/DL Urine Glucose (UA) NEG (NEG) MG/DL Urine Ketones 15 (NEG) MG/DL Urine Blood NEG (NEG) Urine Nitrite NEG (NEG) Ur Leukocyte Esterase NEG (NEG) Urine Opiates Screen Not Detected (Not Detect) Urine Fentanyl Screen Not Detected (Not Detect) Ur Barbiturates Screen Not Detected (Not Detect) Ur Phencyclidine Scrn POSITIVE H (Not Detect) Ur Amphetamines Screen Not Detected (Not Detect) U Benzodiazepines Scrn Not Detected (Not Detect) Urine Cocaine Screen POSITIVE H (Not Detect) U Marijuana (THC) Screen Not Detected (Not Detect) <Vane Ash MD - Last Filed: 04/24/21 15:24> Lab Results 04/24/21 04/24/21 04/24/21 Range/Units 01:17 01:17 08:09 WBC 9.0 (4.8-10.8) X10*3/uL RBC 4.71 (4.60-5.80) X10*6/uL Hgb 13.9 L (14.0-18.0) g/dl Hct 42.1 (42.0-52.0) % MCV 89.4 (80.0-98.0) fL MCH 29.5 (27.0-33.0) pg MCHC 33.0 (31.0-36.0) g/dl RDW 12.6 (11.0-16.0) % Plt Count 377 (160-400) X10*3/uL MPV 10.4 (9.4-12.4) fL Immature Gran % (Auto) 0.2 (0.0-0.4) % Neut % (Auto) 52.1 (45-73) % Lymph % (Auto) 33.7 (20-40) % Ray % (Auto) 8.9 (2-11) % Eos % (Auto) 4.4 H (0-4) % Baso % (Auto) 0.7 (0-2) % Lymph # (Auto) 3.0 (1.2-4.9) X10*3/uL Ray # (Auto) 0.8 (0.1-1.2) X10*3/uL Eos # (Auto) 0.4 (0.0-0.4) X10*3/uL Baso # (Auto) 0.1 (0.0-0.2) X10*3/uL Abs Immat Gran (auto) 0.02 (0.00-0.03) X10*3/uL Absolute Neuts (auto) 4.7 (2.0-8.3) x10*3/uL Absolute Nucleated RBC 0.000 (0.0-0.012) X10*3/uL Nucleated RBC % (auto) 0.0 (0.0-0.2) /100WBC Sodium 140 141 (135-145) mmol/L Potassium 3.5 4.0 (3.3-5.1) mmol/L Chloride 106 108 (96-108) mmol/L Carbon Dioxide 24 25 (22-29) mmol/L Anion Gap 14 12 (12-20) BUN 18 H 16 (9-16) mg/dL Creatinine 1.14 0.87 (0.5-1.4) mg/dL Estim Creat Clear Calc TNP TNP Estimated GFR > 60 > 60 Random Glucose 104 83 (60-115) mg/dL Calcium 8.9 8.2 L D (8.4-10.2) mg/dL Total Creatine Kinase 1105 H 826 H (38-174) U/L Urine Color Urine Appearance Urine pH (5.0-8.0) Ur Specific [place] (1.005-1.025) Urine Protein (NEG-TRACE) MG/DL Urine Glucose (UA) (NEG) MG/DL Urine Ketones (NEG) MG/DL Urine Blood (NEG) Urine Nitrite (NEG) Ur Leukocyte Esterase (NEG) Urine Opiates Screen (Not Detect) Urine Fentanyl Screen (Not Detect) Ur Barbiturates Screen (Not Detect) Ur Phencyclidine Scrn (Not Detect) Ur Amphetamines Screen (Not Detect) U Benzodiazepines Scrn (Not Detect) Urine Cocaine Screen (Not Detect) U Marijuana (THC) Screen (Not Detect) 04/24/21 04/24/21 Range/Units 11:00 11:00 WBC (4.8-10.8) X10*3/uL RBC (4.60-5.80) X10*6/uL Hgb (14.0-18.0) g/dl Hct (42.0-52.0) % MCV (80.0-98.0) fL MCH (27.0-33.0) pg MCHC (31.0-36.0) g/dl RDW (11.0-16.0) % Plt Count (160-400) X10*3/uL MPV (9.4-12.4) fL Immature Gran % (Auto) (0.0-0.4) % Neut % (Auto) (45-73) % Lymph % (Auto) (20-40) % Ray % (Auto) (2-11) % Eos % (Auto) (0-4) % Baso % (Auto) (0-2) % Lymph # (Auto) (1.2-4.9) X10*3/uL Ray # (Auto) (0.1-1.2) X10*3/uL Eos # (Auto) (0.0-0.4) X10*3/uL Baso # (Auto) (0.0-0.2) X10*3/uL Abs Immat Gran (auto) (0.00-0.03) X10*3/uL Absolute Neuts (auto) (2.0-8.3) x10*3/uL Absolute Nucleated RBC (0.0-0.012) X10*3/uL Nucleated RBC % (auto) (0.0-0.2) /100WBC Sodium (135-145) mmol/L Potassium (3.3-5.1) mmol/L Chloride (96-108) mmol/L Carbon Dioxide (22-29) mmol/L Anion Gap (12-20) BUN (9-16) mg/dL Creatinine (0.5-1.4) mg/dL Estim Creat Clear Calc Estimated GFR Random Glucose (60-115) mg/dL Calcium (8.4-10.2) mg/dL Total Creatine Kinase (38-174) U/L Urine Color YELLOW Urine Appearance CLEAR Urine pH 6.0 (5.0-8.0) Ur Specific [place] 1.025 (1.005-1.025) Urine Protein NEG (NEG-TRACE) MG/DL Urine Glucose (UA) NEG (NEG) MG/DL Urine Ketones 15 (NEG) MG/DL Urine Blood NEG (NEG) Urine Nitrite NEG (NEG) Ur Leukocyte Esterase NEG (NEG) Urine Opiates Screen Not Detected (Not Detect) Urine Fentanyl Screen Not Detected (Not Detect) Ur Barbiturates Screen Not Detected (Not Detect) Ur Phencyclidine Scrn POSITIVE H (Not Detect) Ur Amphetamines Screen Not Detected (Not Detect) U Benzodiazepines Scrn Not Detected (Not Detect) Urine Cocaine Screen POSITIVE H (Not Detect) U Marijuana (THC) Screen Not Detected (Not Detect) <Aureliano Staton MD - Last Filed: 04/24/21 18:10> Discharge Plan Discharge Clinical Impression: Polysubstance abuse, Rhabdomyolysis <Saran Bishop MD - Last Filed: 04/24/21 06:17> Patient Disposition: Elopement <Saran Bishop MD - Last Filed: 04/24/21 06:17> Instructions: Rhabdomyolysis (ED), Polysubstance Abuse (ED) <Saran Bishop MD - Last Filed: 04/24/21 06:17>
[2021-04-24 05:44] LABS: Anion Gap 14 (12-20); Blood Urea Nitrogen 18 mg/dL (9-16); Calcium 8.9 mg/dL (8.4-10.2); Carbon Dioxide 24 mmol/L (22-29); Chloride 106 mmol/L (96-108); Estimated Glomerular Filt Rate > 60; Glucose Random 104 mg/dL (60-115); Potassium 3.5 mmol/L (3.3-5.1); Sodium 140 mmol/L (135-145)
[2021-04-24 06:22] VITALS: PULSE 71
--- NOTE | 2021-04-24 06:40 | PC.NURSE ---
Bret presented to the ED via EMS after being found sleeping outside. he was brought to the ED where he admitted to using PCP. For approximately ten minutes he refused to get undressed and began to resist security, who restrained him and applied wrist restraints for a very short period of time while we were able to medically restrain him with Haldol and Ativan. Since that time the pt has been unrestrained and sleeping, RIVERO x4, respirations non-labored, O2 sats 96% on 2L nasal cannula. I spoke with the pt';s grandmother who was searching [facility] for the pt. i informed her that he was in the ED and she verbalized an understanding.
[2021-04-24 07:39] VITALS: BP 120/76; PULSE 74; RESP 18; O2SAT 100
--- NOTE | 2021-04-24 07:41 | PC.NURSE ---
Pt sleeping at this time. No signs of distress, respirations even, unlabored, snoring at this time, CIWA 0, call barrett within reach. Will continue to monitor.
[2021-04-24 08:31] LABS: Anion Gap 12 (12-20); Blood Urea Nitrogen 16 mg/dL (9-16); Calcium 8.2 mg/dL (8.4-10.2); Carbon Dioxide 25 mmol/L (22-29); Chloride 108 mmol/L (96-108); Estimated Glomerular Filt Rate > 60; Glucose Random 83 mg/dL (60-115); Sodium 141 mmol/L (135-145)
[2021-04-24] MEDS: 0.9 % Sodium Chloride 1,000 ML 999 ML IV ×2 (08:52→12:14)
[2021-04-24 11:14] LABS: Appearance Urine CLEAR; Color Urine YELLOW; Glucose Urine UA NEG (NEG); Leukocyte Esterase Urine NEG (NEG); Nitrite Urine NEG (NEG); Specific Gravity - Urine 1.025 (1.005-1.025); Urine Blood NEG (NEG); Urine Ketones 15 MG/DL (NEG); Urine Protein NEG (NEG-TRACE)
[2021-04-24 11:26] LABS: Amphetamine Screen Urine Not Detected (Not Detect); Barbiturates, Urine Not Detected (Not Detect); Benzodiazepines Screen Urine Not Detected (Not Detect); Cannabinoid Screen Urine Not Detected (Not Detect); Cocaine Screen Urine POSITIVE (Not Detect); Fentanyl, urine Not Detected (Not Detect); Opiate Screen Urine Not Detected (Not Detect); Phencyclidine Screen Urine POSITIVE (Not Detect)
--- NOTE | 2021-04-24 11:36 | MHC.RECOVSUP ---
? Reason for consult:Recovery Support o Current location:bed 18 o Identified substance use concern:polysubstance - Overdose - Support ? Intervention: o ? Additional information:Patient in a deep sleep,unable to cooperate in assessment.
[2021-04-24 11:47] VITALS: RESP 16
--- NOTE | 2021-04-24 11:48 | PC.NURSE ---
patient woke briefly obtained urine with help of tech, patient then laid back down and went to back to sleep, family at bedside, will continue to monitor.
--- NOTE | 2021-04-24 12:14 | PC.NURSE ---
ivf started per order
[2021-04-24 14:00] VITALS: BP 144/84; PULSE 81; O2SAT 96
--- NOTE | 2021-04-24 14:54 | PC.NURSE ---
pt sleeping, vss, will continue to monitor. tech attempting to draw labs.
--- NOTE | 2021-04-24 15:30 | PC.NURSE ---
patient ambulated with tech to bathroom, patient very unsteady gait. phlebotomy called to do repeat lab draw- phlebotomy stated they are backed up and unable to come draw at this time suggesting to use a pedi tube/lancet, tech to speak with phlebotomy to get necessary supplies to attempt to do this. pt currently back in bed and sleeping. will continue to monitor.
[2021-04-24 16:00] VITALS: RESP 16
--- NOTE | 2021-04-24 16:05 | PC.NURSE ---
pt sleeping, family at bedside, rr 16-17, will continue to monitor.
--- NOTE | 2021-04-24 16:25 | PC.NURSE ---
lab called, tech was unable to obtain enough blood with pedi tube and lancet, will call phlebotomy again to obtain
--- NOTE | 2021-04-24 16:28 | PC.NURSE ---
this nurse has called phlebotomy to attempt lab draw again
== END 2021-04-24 18:11 | disposition left against medical advice (07) ==
PROVIDERS: Internal Medicine; Emergency Provider Emergency Medicine
DX: R45.1 Restlessness and agitation (principal); F19.10 Other psychoactive substance abuse, uncomplicated; M62.82 Rhabdomyolysis
CPT/HCPCS: 36415; 80048; 80307; 81003; 82550; 85025; 93005; 99285; J2060

== ENCOUNTER 2021-05-01 20:22 | Emergency (ER) | payer MEDICAID, SELFPAY ==
--- NOTE | ~2021-05-01 | CT_ITS ---
EXAMINATION: NONCONTRAST HEAD CT NONCONTRAST MAXILLOFACIAL CT NONCONTRAST CERVICAL SPINE CT INDICATION INFORMATION: Fall, pain COMPARISON: 01/14/2021 TECHNIQUE: Separate noncontrast CT examinations of the head, maxillofacial bones, and cervical spine were performed. Coronal and sagittal images were created for each examination at the technologist workstation. DOSE LOWERING TECHNIQUES: This CT examination was performed using dose optimization techniques as appropriate, variously including the following: - Automated exposure control - Adjustment of mA and/or kV according to patient size (this includes techniques or standardized protocols for targeted exams were dose is matched to indication/reason for exam; i.e. extremities or head) - Use of iterative reconstruction technique DLP: 2293 mGy-cm FINDINGS: Head: There is no evidence of acute intracranial hemorrhage or territorial infarction. No abnormal mass-effect or midline shift is seen. Baldwin to white matter differentiation is well preserved. No extra-axial fluid collections are identified. The ventricles are normal in size. There is no abnormal attenuation within the brain parenchyma. The osseous structures and soft tissues are normal. The mastoid air cells are well aerated. Maxillofacial: No acute maxillofacial fractures are seen. There is mild mucosal thickening of the left maxillary sinus and bilateral ethmoid air cells. Remaining paranasal sinuses are well-aerated. There is mucosal thickening along the bilateral infundibula. There is leftward deviation of the nasal septum. The mandibular condyles are well-seated in the condylar fossa. Right periorbital soft tissue swelling is present. The orbits otherwise demonstrate a normal appearance bilaterally. The globes are intact, and there are no suspicious findings to suggest retrobulbar hemorrhage. Cervical spine: There is anatomic alignment of the vertebral bodies and posterior elements. Reversal of the normal cervical lordosis is noted. Vertebral body heights are maintained. There is disc space narrowing at C5-C6 with associated endplate osteophytes. No evidence of acute fracture. No prevertebral soft tissue swelling. Visualized portions of the lung apices are unremarkable. The thyroid gland is unremarkable. CT/CT cervical spine wo con IMPRESSION: 1. Right periorbital soft tissue swelling. No fracture identified. 2. No acute intracranial findings. 3. No acute findings identified in the cervical spine.
[2021-05-01 20:41] VITALS: BP 149/98; BP 153/90; PULSE 90; RESP 18; O2SAT 96; O2SAT 98; BMI 32.2
[2021-05-01 20:49] VITALS: TEMP 36.5
[2021-05-01 20:58] LABS: Glucose, Whole Blood 83 mg/dL (60-115)
--- NOTE | 2021-05-01 22:01 | PC.NURSE ---
Pt wandering dept with steady independent gait. Pt redirected to bed. Pt's grandmother at bedside, informs this RN He would like to go home now, he's ready. This RN informs pt that d/t his initial presentation to ED, he must remain in ED until provider states pt is safe for discharge. Pt and pt's grandmother express understanding. Pt's grandmother states but he's hungry, can he have something to eat? This RN asks Dr Ko if pt is cleared for PO intake and she states yes. Pt provided PO per request. Dr Ko at bedside at this time for primary eval.
--- NOTE | 2021-05-01 22:12 | ED.FALL ---
HPI - Fall General Chief Complaint: Overdose Stated Complaint: FOUND SLEEPING ON GROUND,? ETOH INTOX PER EMS Time Seen by Provider: 05/01/21 22:11 Source: patient and family (Grandmother) Mode of arrival: EMS History of Present Illness HPI Narrative: This is a 35-year-old male who is brought in by EMS, well known to the emergency room for chronic PCP user. As per EMS they stated that a bystander called 911 finding patient laying on the ground in a blanket. On further discussion with the patient and his grandmother, the grandmother endorses that she observed the patient fall off of the last step on the stairs striking his head but no LOC and she made multiple attempts to get him into a standing position but was unable to. She states that someone came by to help her and given that the ground was cold covered the patient and then called 911. Related Data Allergies Allergy/AdvReac Type Severity Reaction Status Date / Time Penicillins [PENICILLINS] Allergy Severe SHORTNESS Verified 05/12/20 16:56 OF BREATH sulfamethoxazole Allergy Severe HIVES Verified 05/12/20 16:56 [From BACTRIM] trimethoprim [From BACTRIM] Allergy Severe HIVES Verified 05/12/20 16:56 Review of Systems Review of Systems: Pertinent positives and negatives as stated in HPI and 10 point review of systems is otherwise negative. PMFSH Past Medical History Medical History ACL (anterior cruciate ligament) tear PCP abuse Social History Social History Alcohol intake: unknown Patient Tobacco Use Status: Tobacco use Unknown Substance Use Type: Hallucinogens Advance Directives: No Advance Directives Information Provided: Yes Physical Exam Vital Signs: Vital Signs: Last Vital Signs Temp 97.7 F 05/01/21 20:49 Pulse 90 05/01/21 20:41 Resp 18 05/01/21 20:41 BP 149/98 H 05/01/21 20:41 Pulse Ox 96 05/01/21 20:41 BMI result Body Mass Index 32.2 VITAL SIGNS: Reviewed. GENERAL: Well developed, well nourished, in no acute distress. HEAD: Normocephalic/patient has contusion over right eyebrow without laceration, there is a superficial abrasion to the right nasal labial fold, superficial abrasion to the bridge of the nose EYES: PERRLA, EOMI, patient is not pinpoint EARS: Ext canals without abnormality, TMs non-bulging and non-erythematous, no hemotympanum NOSE: Nares patent bilateral OROPHARYNX: no oral lesions noted, posterior pharynx clear NECK: Supple, no adenopathy LUNGS: Normal breath sounds. No adventitious sounds or accessory muscle use. SpO2<96> CARDIOVASCULAR: Regular rate and rhythm without noted murmurs, no JVD or lower extremity edema. ABDOMEN: Soft, non-tender, non-distended with bowel sounds. MUSCULOSKELETAL: No tenderness, deformities, or effusions noted on gross inspection. EXTREMITIES: No cyanosis, clubbing or edema, superficial abrasions to the knuckles of digits 4/5/no deformity/full range of motion is intact; there are no rage insert lacerations or injury noted to bilateral knees/elbows SKIN: Inspection of the skin reveals no rashes NEUROLOGIC: Alert and oriented x 3. Strength and sensation to light touch were grossly intact x 4. Course Course Course Narrative: 35-year-old male with history and clinical presentation consistent with underlying PCP use and suspect that patient fall related to under the influence of this substance. Will order CT head/C-spine/facial bones, do not suspect fracture/dislocation of the left hand or fingers. Grandmother is poor prior to take the patient home once receipt of negative imaging is received. Review of all imaging results are negative for acute findings other than periorbital swelling as indicated in clinical exam. Patient is otherwise ambulating with a steady gait, has tolerated oral intake and has a safe ride home with his grandmother with whom he lives. MDM - Fall Lab Data Labs: Lab Results 05/01/21 Range/Units 20:36 POC Glucose 83 (60-115) mg/dL Discharge Plan Discharge Clinical Impression: Active substance abuse, Fall (on) (from) other stairs and steps, initial encounter, Abrasion, Contusion Patient Disposition: Home, Self-Care Instructions: Bone Bruise (ED), Contusion in Adults (ED), Abrasion (ED) Additional Instructions: Please follow-up with your primary care provider in the next 2-3 days. Return to the ER for worsening symptoms. Print Language: [place]
[2021-05-01 23:30] VITALS: BP 138/72; PULSE 83; RESP 18; O2SAT 99
== END 2021-05-01 23:38 | disposition home or self-care (01) ==
PROVIDERS: Emergency Provider Student in an Organized Health Care Education/Training Program
DX: F16.10 Hallucinogen abuse, uncomplicated (principal); S00.11XA Contusion of right eyelid and periocular area, initial encounter; S00.31XA Abrasion of nose, initial encounter; W10.8XXA Fall (on) (from) other stairs and steps, initial encounter; Y93.9 Activity, unspecified; Y92.480 Sidewalk as the place of occurrence of the external cause; Y99.9 Unspecified external cause status
CPT/HCPCS: 70450; 70486; 72125; 82947; 99283; 99284

== ENCOUNTER 2022-02-18 13:41 | Emergency (ER) | payer MEDICAID, SELFPAY ==
--- NOTE | ~2022-02-18 | CT_ITS ---
CT SOFT TISSUE NECK WITH CONTRAST CLINICAL INFORMATION: Bilateral throat pain. Rule out tonsillar abscess. COMPARISON: Cervical spine CT 05/01/2021. TECHNIQUE: Following the intravenous administration of 60 mL of Omnipaque 350 intravenous contrast, helical imaging was performed in the axial plane with generation of coronal and sagittal reformatted images. This CT examination was performed using dose optimization techniques as appropriate, variously including the following: *Automated exposure control *Adjustment of mA and/or kV according to patient size (this includes techniques or standardized protocols for targeted exams where dose is matched to indication/reason for exam; i.e. extremities or head) *Use of iterative reconstruction technique FINDINGS: Significant enlargement of the left palatine tonsil which is heterogeneous in attenuation compatible with palatine tonsillitis. Adenoid tonsils may also be infected. Findings are present to a lesser extent on the right side There is an up to 2.4 cm dorsal left peritonsillar abscess extending from the dorsal margin of the left palatine tonsil into the left parapharyngeal space surrounded by enhancing phlegmon. Severe retropharyngeal cellulitis which extends inferiorly towards the upper mediastinum at the level of the thoracic inlet. There is also cellulitis involving the periphery of the hypopharynx with associated effacement of the piriform sinuses bilaterally. The epiglottis is normal in size and there are no cellulitic changes within the floor of mouth. Reactive lymphadenopathy along the jugular chains bilaterally, greater on the left side. ENT and infectious disease consultation advised. There are no filling defects within the internal jugular veins. Imaged upper lungs are clear. Reversal of the cervical lordosis. Small defect within the cartilaginous nasal septum. Polypoid soft tissue partially effaces the left nasal cavity. There is adenoid tonsillar hypertrophy. CT/CT soft tissue neck w IV con IMPRESSION: Left greater than right palatine tonsillitis with an associated 2.4 cm dorsal left peritonsillar abscess surrounded by enhancing phlegmon. Adenoid tonsils may also be infected. Severe retropharyngeal cellulitis which extends inferiorly towards the upper mediastinum at the level of the thoracic inlet. There is also cellulitis involving the periphery of the hypopharynx with associated effacement of the piriform sinuses bilaterally. The epiglottis is normal in size and there are no cellulitic changes within the floor of mouth. Reactive lymphadenopathy along the jugular chains bilaterally, greater on the left side. ENT and infectious disease consultation advised.
[2022-02-18 14:04] VITALS: BP 113/71; PULSE 120; RESP 18; TEMP 36.7; O2SAT 96; BMI 33.2
--- NOTE | 2022-02-18 14:12 | ED_ITS ---
HPI - Neck Pain/Injury General Chief Complaint: Dental/Oral <Yoandy Gonzales MD - Last Filed: 02/18/22 14:16> Stated Complaint: peritonsillar Abscess <Yoandy Gonzales MD - Last Filed: 02/18/22 14:16> Time Seen by Provider: 02/18/22 14:26 <Yoandy Gonzales MD - Last Filed: 02/18/22 14:16> Source: patient <ONEYDA Bernal - Last Filed: 02/18/22 16:24> Mode of arrival: ambulatory <ONEYDA Bernal - Last Filed: 02/18/22 16:24> Limitations: no limitations <ONEYDA Bernal - Last Filed: 02/18/22 16:24> History of Present Illness HPI Narrative: 36 yo male with history of polysubstance abuse (primarily PCP), hx tonsillectomy as a child who is presenting to the ER from urgent care clinic for rule out peritonsillar abscess. Patient reports he has had a worsening sore throat over the last 1 week. He states it is been a getting worse every day. He now has difficulty swallowing anything and noted a change in his voice that started 2-3 days ago. He states he also had left ear pain that started after he blew his nose and heard a pop. He reports there is swelling and tenderness on left side of his neck. No dental pain. He denies any fevers but reports diffuse body aches and not feeling well for the last several days. He denies any sick contacts. He was able to drink some liquids earlier today and have a small piece of ham but with difficulty. <ONEYDA Bernal - Last Filed: 02/18/22 16:24> MD complaint: neck pain and other (Sore throat) <ONEYDA Bernal - Last Filed: 02/18/22 16:24> Onset (ago): week(s) (1) <ONEYDA Bernal - Last Filed: 02/18/22 16:24> Severity: severe <ONEYDA Bernal Last Filed: 02/18/22 16:24> Quality: sharp and aching <ONEYDA Bernal Last Filed: 02/18/22 16:24> Duration: constant <ONEYDA Bernal - Last Filed: 02/18/22 16:24> Relieving factors: none <ONEYDA Bernal - Last Filed: 02/18/22 16:24> Exacerbating factors: other (Swallowing, eating) <ONEYDA Bernal - Last Filed: 02/18/22 16:24> Associated symptoms: headache, swollen glands and other (Ear pain) <ONEYDA Bernal - Last Filed: 02/18/22 16:24> Treatments prior to arrival: none <ONEYDA Bernal - Last Filed: 02/18/22 16:24> Related Data Allergies/Adverse Reactions: Allergies Allergy/AdvReac Type Severity Reaction Status Date / Time Penicillins [PENICILLINS] Allergy Severe SHORTNESS Verified 05/12/20 16:56 OF BREATH sulfamethoxazole Allergy Severe HIVES Verified 05/12/20 16:56 [From BACTRIM] trimethoprim [From BACTRIM] Allergy Severe HIVES Verified 05/12/20 16:56 <Yoandy Gonzales MD - Last Filed: 02/18/22 14:16> Review of Systems Review of Systems: Constitutional: No Fever, No Chills ENT/Mouth: + sore throat, No Rhinorrhea, + Swallowing Difficulty, +Otalgia Eyes: No Eye Pain, No Swelling, No Redness Cardiovascular: No Chest Pain, No SOB, No Orthopnea, No Edema Respiratory: No Cough, No Sputum, No Wheezing, No dyspnea Gastrointestinal: No Nausea, No Vomiting, No Diarrhea, No abdominal Pain Genitourinary: No Dysuria, No Urinary Frequency, No Hematuria Musculoskeletal: No joint pain, No Myalgias Skin: No Skin Lesions, No rash Neuro: No Weakness, No Dizziness, + Headache Heme/Lymph: No Bruising, + Lymphadenopathy <ONEYDA Bernal - Last Filed: 02/18/22 16:24> PMF Past Medical History Medical History: Medical History ACL (anterior cruciate ligament) tear PCP abuse <Yoandy Gonzales MD - Last Filed: 02/18/22 14:16> Social History Social History: Social History Alcohol intake: never Patient Tobacco Use Status: Tobacco use Unknown Smoked in Last 30 Days: No Use of substances other than those prescribed or required for medical reasons: Yes Substance Use Type: Crack/Cocaine Any prior treatment program specific to substance use: No Advance Directives: No <Yoandy Gonzales MD - Last Filed: 02/18/22 14:16> Physical Exam Vital Signs: Vital Signs: Last Vital Signs Temp 100.7 F H 02/18/22 15:54 Pulse 115 H 02/18/22 15:54 Resp 16 02/18/22 15:54 BP 138/78 02/18/22 15:54 Pulse Ox 97 02/18/22 15:54 O2 Del Method 02/18/22 15:54 BMI result Body Mass Index 33.2 <Yoandy Gonzales MD - Last Filed: 02/18/22 14:16> Vital Signs: Last Vital Signs Temp 100.7 F H 02/18/22 15:54 Pulse 115 H 02/18/22 15:54 Resp 16 02/18/22 15:54 BP 138/78 02/18/22 15:54 Pulse Ox 97 02/18/22 15:54 O2 Del Method 02/18/22 15:54 BMI result Body Mass Index 33.2 <ONEYDA Bernal - Last Filed: 02/18/22 16:24> Appearance: Alert. Oriented X3. No acute distress. Muffled voice Eyes: Pupils equal, round and reactive to light. ENT: mallampati III, visualized uvula with deviation to the right. left peritonsillar mass partially visualized. muffled voice Neck: left anterior and lateral neck with tender LAD and swelling CVS:Tachycardic, regular rhythm, HR 120, Pulses normal. Respiratory: No respiratory distress. Breath sounds normal. Abdomen: Soft and nontender. +BS x4 Skin: Skin warm and dry. Normal skin color. Normal skin turgor. No rashes. Extremities: No lower extremity edema. Neuro: Oriented X 3. nonfocal <ONEYDA Bernal - Last Filed: 02/18/22 16:24> Course Course Course Narrative: 36-year-old male history of asthma and heart murmur who presents emergency department for evaluation of bilateral throat pain x1 week, patient is having difficulty swallowing talking secondary to his throat pain. Patient was seen at an urgent care referred to the emergency department to rule out tonsillar abscess. Vital signs revealed an elevated pulse of 120. Exam did reveal bilateral posterior pharyngeal swelling with a an enlarged uvula, uvula is mi dline, patient has tenderness palpation of his throat otherwise exam is unremarkable. I ordered a CBC, CMP, lactic acid, lipase, PT/INR, PTT, blood cultures x2, CT scan of the neck with IV contrast, Toradol 15 mg IV and dexamethasone 10 mg IV. Patient also be treated with normal saline IV x1 L. the patient will be brought back to a room in the ED for further management. <Yoandy Gonzales MD - Last Filed: 02/18/22 14:16> Reevaluation(s) Reevaluation #1: Patient seen and examined. Concern for peritonsillar abscess with hot potato voice and deviation of the uvula. WBC 31.2 with normal lactic acid. no other end organ dysfunction identified at this time. He is getting IV Rocephin for +Strep. 2nd liter IVF ordered. Called multiple facilities for transfer with ENT services including [facility], [facility] and [facility] all of which are closed for transfers at this time. <ONEYDA Bernal - Last Filed: 02/18/22 16:24> Reevaluation #2: CT SCAN SOFT TISSUE NECK: Left greater than right palatine tonsillitis with an associated 2.4 cm dorsal left peritonsillar abscess surrounded by enhancing phlegmon. Adenoid tonsils may also be infected. Severe retropharyngeal cellulitis which extends inferiorly towards the upper mediastinum at the level of the thoracic inlet. There is also cellulitis involving the periphery of the hypopharynx with associated effacement of the piriform sinuses bilaterally. The epiglottis is normal in size and there are no cellulitic changes within the floor of mouth. Reactive lymphadenopathy along the jugular chains bilaterally, greater on the left side. ENT and infectious disease consultation advised. Spoke with [facility] transfer line - will transfer for ENT evaluation. Dr. Chiang in the ER accepting MD. Patient updated on plan of care. <ONEYDA Bernal - Last Filed: 02/18/22 16:24> Medications Administered Discontinued Medications Generic Name Dose Route Start Last Admin Trade Name Katy PRN Reason Stop Dose Admin Acetaminophen 650 mg 02/18/22 15:56 02/18/22 16:03 Acetaminophen Oral Liquid 650 Mg/20.3 Ml Solution PO 02/18/22 15:57 650 mg ONCE ONE Administration Dexamethasone Sodium Phosphate 10 mg 02/18/22 14:12 02/18/22 14:46 Dexamethasone Sod Phosphate 10 Mg/Ml Vial IVPUSH 02/18/22 14:13 10 mg ONCE ONE Administration Sodium Chloride 1,000 mls @ 999 mls/hr 02/18/22 14:12 02/18/22 14:46 Ns IV 02/18/22 15:12 999 mls/hr .Q1H1M STA Administration Ceftriaxone Sodium 1 gm/ 50 mls @ 100 mls/hr 02/18/22 14:33 02/18/22 15:48 Sodium Chloride IV 02/18/22 15:02 Infused ONCE ONE Infusion Iohexol 100 ml 02/18/22 15:37 02/18/22 15:37 Iohexol 350 Mg/Ml 100 Ml Infus..Btl IV 02/18/22 15:38 60 ml ONCE ONE Administration Ketorolac Tromethamine 15 mg 02/18/22 14:12 02/18/22 14:45 Ketorolac Tromethamine 15 Mg/Ml Vial IVPUSH 02/18/22 14:13 15 mg ONCE STA Administration Lidocaine HCl 15 ml 02/18/22 14:33 02/18/22 14:45 Lidocaine Hcl Viscous 2 % 15 Ml Solution MUCOUS MEM 02/18/22 14:34 15 ml ONCE ONE Administration <Yoandy Gonzales MD - Last Filed: 02/18/22 14:16> Medications Administered Discontinued Medications Generic Name Dose Route Start Last Admin Trade Name Katy PRN Reason Stop Dose Admin Acetaminophen 650 mg 02/18/22 15:56 02/18/22 16:03 Acetaminophen Oral Liquid 650 Mg/20.3 Ml Solution PO 02/18/22 15:57 650 mg ONCE ONE Administration Dexamethasone Sodium Phosphate 10 mg 02/18/22 14:12 02/18/22 14:46 Dexamethasone Sod Phosphate 10 Mg/Ml Vial IVPUSH 02/18/22 14:13 10 mg ONCE ONE Administration Sodium Chloride 1,000 mls @ 999 mls/hr 02/18/22 14:12 02/18/22 14:46 Ns IV 02/18/22 15:12 999 mls/hr .Q1H1M STA Administration Ceftriaxone Sodium 1 gm/ 50 mls @ 100 mls/hr 02/18/22 14:33 02/18/22 15:48 Sodium Chloride IV 02/18/22 15:02 Infused ONCE ONE Infusion Iohexol 100 ml 02/18/22 15:37 02/18/22 15:37 Iohexol 350 Mg/Ml 100 Ml Infus..Btl IV 02/18/22 15:38 60 ml ONCE ONE Administration Ketorolac Tromethamine 15 mg 02/18/22 14:12 02/18/22 14:45 Ketorolac Tromethamine 15 Mg/Ml Vial IVPUSH 02/18/22 14:13 15 mg ONCE STA Administration Lidocaine HCl 15 ml 02/18/22 14:33 02/18/22 14:45 Lidocaine Hcl Viscous 2 % 15 Ml Solution MUCOUS MEM 02/18/22 14:34 15 ml ONCE ONE Administration <ONEYDA Bernal - Last Filed: 02/18/22 16:24> Medical Decision Making Lab Data Result Diagrams: : 02/18/22 14:42 02/18/22 14:42 <Yoandy Gonzales MD - Last Filed: 02/18/22 14:16> Labs: Lab Results 02/18/22 02/18/22 02/18/22 Range/Units 14:11 14:42 14:42 WBC 31.2 H* (4.8-10.8) X10*3/uL RBC 4.65 (4.60-5.80) X10*6/uL Hgb 13.6 L (14.0-18.0) g/dl Hct 40.9 L (42.0-52.0) % MCV 88.0 (80.0-98.0) fL MCH 29.2 (27.0-33.0) pg MCHC 33.3 (31.0-36.0) g/dl RDW 12.8 (11.0-16.0) % Plt Count 448 H (160-400) X10*3/uL MPV 9.6 (9.4-12.4) fL Immature Gran % (Auto) 0.7 H (0.0-0.4) % Neut % (Auto) 88.7 H (45-73) % Lymph % (Auto) 6.0 L (20-40) % [place] % (Auto) 4.1 (2-11) % Eos % (Auto) 0.2 (0-4) % Baso % (Auto) 0.3 (0-2) % Lymph # (Auto) 1.9 (1.2-4.9) X10*3/uL [place] # (Auto) 1.3 H (0.1-1.2) X10*3/uL Eos # (Auto) 0.1 (0.0-0.4) X10*3/uL Baso # (Auto) 0.1 (0.0-0.2) X10*3/uL Abs Immat Gran (auto) 0.21 H (0.00-0.03) X10*3/uL Absolute Neuts (auto) 27.7 H (2.0-8.3) x10*3/uL Absolute Nucleated RBC 0.000 (0.0-0.012) X10*3/uL Nucleated RBC % (auto) 0.0 (0.0-0.2) /100WBC Smear Tech's Comments VERIFIED PT 13.9 H (10.0-13.1) SEC INR 1.2 H (0.9-1.1) APTT 33.6 (26.0-36.4) SEC Sodium (135-145) mmol/L Potassium (3.3-5.1) mmol/L Chloride (96-108) mmol/L Carbon Dioxide (22-29) mmol/L Anion Gap (12-20) BUN (9-16) mg/dL Creatinine (0.5-1.4) mg/dL Estim Creat Clear Calc Estimated GFR Random Glucose (60-115) mg/dL Lactic Acid (0.5-2.0) mmol/L Calcium (8.4-10.2) mg/dL Total Bilirubin (0.0-1.0) mg/dL AST (5-37) U/L ALT (0-40) U/L Alkaline Phosphatase (39-117) U/L Total Protein (6.5-8.0) g/dL Albumin (3.5-5.0) g/dL Lipase (8-78) U/L Urine Opiates Screen (Not Detect) Urine Fentanyl Screen (Not Detect) Ur Barbiturates Screen (Not Detect) Ur Phencyclidine Scrn (Not Detect) Ur Amphetamines Screen (Not Detect) U Benzodiazepines Scrn (Not Detect) Urine Cocaine Screen (Not Detect) U Marijuana (THC) Screen (Not Detect) S. pyogenes GrpA ELMER Positive A (Negative) 02/18/22 02/18/22 02/18/22 Range/Units 14:42 14:43 15:02 WBC (4.8-10.8) X10*3/uL RBC (4.60-5.80) X10*6/uL Hgb (14.0-18.0) g/dl Hct (42.0-52.0) % MCV (80.0-98.0) fL MCH (27.0-33.0) pg MCHC (31.0-36.0) g/dl RDW (11.0-16.0) % Plt Count (160-400) X10*3/uL MPV (9.4-12.4) fL Immature Gran % (Auto) (0.0-0.4) % Neut % (Auto) (45-73) % Lymph % (Auto) (20-40) % [place] % (Auto) (2-11) % Eos % (Auto) (0-4) % Baso % (Auto) (0-2) % Lymph # (Auto) (1.2-4.9) X10*3/uL [place] # (Auto) (0.1-1.2) X10*3/uL Eos # (Auto) (0.0-0.4) X10*3/uL Baso # (Auto) (0.0-0.2) X10*3/uL Abs Immat Gran (auto) (0.00-0.03) X10*3/uL Absolute Neuts (auto) (2.0-8.3) x10*3/uL Absolute Nucleated RBC (0.0-0.012) X10*3/uL Nucleated RBC % (auto) (0.0-0.2) /100WBC Smear Tech's Comments PT (10.0-13.1) SEC INR (0.9-1.1) APTT (26.0-36.4) SEC Sodium 135 (135-145) mmol/L Potassium 4.2 (3.3-5.1) mmol/L Chloride 104 (96-108) mmol/L Carbon Dioxide 23 (22-29) mmol/L Anion Gap 12 (12-20) BUN 7 L (9-16) mg/dL Creatinine 0.76 (0.5-1.4) mg/dL Estim Creat Clear Calc 169.6 Estimated GFR > 60 Random Glucose 114 (60-115) mg/dL Lactic Acid 1.1 (0.5-2.0) mmol/L Calcium 8.7 D (8.4-10.2) mg/dL Total Bilirubin 0.5 (0.0-1.0) mg/dL AST 17 (5-37) U/L ALT 16 (0-40) U/L Alkaline Phosphatase 87 (39-117) U/L Total Protein 7.0 (6.5-8.0) g/dL Albumin 3.7 (3.5-5.0) g/dL Lipase 9 (8-78) U/L Urine Opiates Screen Not Detected (Not Detect) Urine Fentanyl Screen Not Detected (Not Detect) Ur Barbiturates Screen Not Detected (Not Detect) Ur Phencyclidine Scrn Not Detected (Not Detect) Ur Amphetamines Screen Not Detected (Not Detect) U Benzodiazepines Scrn Not Detected (Not Detect) Urine Cocaine Screen POSITIVE H (Not Detect) U Marijuana (THC) Screen Not Detected (Not Detect) S. pyogenes GrpA ELMER (Negative) <Yoandy Gonzales MD - Last Filed: 02/18/22 14:16> Lab Results 02/18/22 02/18/22 02/18/22 Range/Units 14:11 14:42 14:42 WBC 31.2 H* (4.8-10.8) X10*3/uL RBC 4.65 (4.60-5.80) X10*6/uL Hgb 13.6 L (14.0-18.0) g/dl Hct 40.9 L (42.0-52.0) % MCV 88.0 (80.0-98.0) fL MCH 29.2 (27.0-33.0) pg MCHC 33.3 (31.0-36.0) g/dl RDW 12.8 (11.0-16.0) % Plt Count 448 H (160-400) X10*3/uL MPV 9.6 (9.4-12.4) fL Immature Gran % (Auto) 0.7 H (0.0-0.4) % Neut % (Auto) 88.7 H (45-73) % Lymph % (Auto) 6.0 L (20-40) % [place] % (Auto) 4.1 (2-11) % Eos % (Auto) 0.2 (0-4) % Baso % (Auto) 0.3 (0-2) % Lymph # (Auto) 1.9 (1.2-4.9) X10*3/uL [place] # (Auto) 1.3 H (0.1-1.2) X10*3/uL Eos # (Auto) 0.1 (0.0-0.4) X10*3/uL Baso # (Auto) 0.1 (0.0-0.2) X10*3/uL Abs Immat Gran (auto) 0.21 H (0.00-0.03) X10*3/uL Absolute Neuts (auto) 27.7 H (2.0-8.3) x10*3/uL Absolute Nucleated RBC 0.000 (0.0-0.012) X10*3/uL Nucleated RBC % (auto) 0.0 (0.0-0.2) /100WBC Smear Tech's Comments VERIFIED PT 13.9 H (10.0-13.1) SEC INR 1.2 H (0.9-1.1) APTT 33.6 (26.0-36.4) SEC Sodium (135-145) mmol/L Potassium (3.3-5.1) mmol/L Chloride (96-108) mmol/L Carbon Dioxide (22-29) mmol/L Anion Gap (12-20) BUN (9-16) mg/dL Creatinine (0.5-1.4) mg/dL Estim Creat Clear Calc Estimated GFR Random Glucose (60-115) mg/dL Lactic Acid (0.5-2.0) mmol/L Calcium (8.4-10.2) mg/dL Total Bilirubin (0.0-1.0) mg/dL AST (5-37) U/L ALT (0-40) U/L Alkaline Phosphatase (39-117) U/L Total Protein (6.5-8.0) g/dL Albumin (3.5-5.0) g/dL Lipase (8-78) U/L Urine Opiates Screen (Not Detect) Urine Fentanyl Screen (Not Detect) Ur Barbiturates Screen (Not Detect) Ur Phencyclidine Scrn (Not Detect) Ur Amphetamines Screen (Not Detect) U Benzodiazepines Scrn (Not Detect) Urine Cocaine Screen (Not Detect) U Marijuana (THC) Screen (Not Detect) S. pyogenes GrpA ELMER Positive A (Negative) 02/18/22 02/18/22 02/18/22 Range/Units 14:42 14:43 15:02 WBC (4.8-10.8) X10*3/uL RBC (4.60-5.80) X10*6/uL Hgb (14.0-18.0) g/dl Hct (42.0-52.0) % MCV (80.0-98.0) fL MCH (27.0-33.0) pg MCHC (31.0-36.0) g/dl RDW (11.0-16.0) % Plt Count (160-400) X10*3/uL MPV (9.4-12.4) fL Immature Gran % (Auto) (0.0-0.4) % Neut % (Auto) (45-73) % Lymph % (Auto) (20-40) % [place] % (Auto) (2-11) % Eos % (Auto) (0-4) % Baso % (Auto) (0-2) % Lymph # (Auto) (1.2-4.9) X10*3/uL [place] # (Auto) (0.1-1.2) X10*3/uL Eos # (Auto) (0.0-0.4) X10*3/uL Baso # (Auto) (0.0-0.2) X10*3/uL Abs Immat Gran (auto) (0.00-0.03) X10*3/uL Absolute Neuts (auto) (2.0-8.3) x10*3/uL Absolute Nucleated RBC (0.0-0.012) X10*3/uL Nucleated RBC % (auto) (0.0-0.2) /100WBC Smear Tech's Comments PT (10.0-13.1) SEC INR (0.9-1.1) APTT (26.0-36.4) SEC Sodium 135 (135-145) mmol/L Potassium 4.2 (3.3-5.1) mmol/L Chloride 104 (96-108) mmol/L Carbon Dioxide 23 (22-29) mmol/L Anion Gap 12 (12-20) BUN 7 L (9-16) mg/dL Creatinine 0.76 (0.5-1.4) mg/dL Estim Creat Clear Calc 169.6 Estimated GFR > 60 Random Glucose 114 (60-115) mg/dL Lactic Acid 1.1 (0.5-2.0) mmol/L Calcium 8.7 D (8.4-10.2) mg/dL Total Bilirubin 0.5 (0.0-1.0) mg/dL AST 17 (5-37) U/L ALT 16 (0-40) U/L Alkaline Phosphatase 87 (39-117) U/L Total Protein 7.0 (6.5-8.0) g/dL Albumin 3.7 (3.5-5.0) g/dL Lipase 9 (8-78) U/L Urine Opiates Screen Not Detected (Not Detect) Urine Fentanyl Screen Not Detected (Not Detect) Ur Barbiturates Screen Not Detected (Not Detect) Ur Phencyclidine Scrn Not Detected (Not Detect) Ur Amphetamines Screen Not Detected (Not Detect) U Benzodiazepines Scrn Not Detected (Not Detect) Urine Cocaine Screen POSITIVE H (Not Detect) U Marijuana (THC) Screen Not Detected (Not Detect) S. pyogenes GrpA ELMER (Negative) <ONEYDA Bernal - Last Filed: 02/18/22 16:24> Critical Care Time Critical Care Time Critical Care Time: Yes <ONEYDA Bernal - Last Filed: 02/18/22 16:24> Total Critical Care Time: 39 <ONEYDA Bernal - Last Filed: 02/18/22 16:24> Attestation: I have personally provided critical care time exclusive of time spent on separately billable procedures. Time includes review of lab data, radiology results, discussion with consultants, and monitoring for potential decompensation. Intervention performed as documented. <ONEYDA Bernal - Last Filed: 02/18/22 16:24> Discharge Plan Discharge Clinical Impression: Sepsis, Acute streptococcal pharyngitis, Peritonsillar abscess <Yoandy Gonzales MD - Last Filed: 02/18/22 14:16> Patient Disposition: [facility] <Yoandy Gonzales MD - Last Filed: 02/18/22 14:16> Transfer Details: [facility] <Yoandy Gonzales MD - Last Filed: 02/18/22 14:16> [facility] <ONEYDA Bernal - Last Filed: 02/18/22 16:24>
[2022-02-18 14:24] LABS: Strep A Nucleic Acid Positive (Negative)
[2022-02-18] MEDS: Lidocaine HCl Viscous 2 % 15 ML SOLUTION MUCOUS MEM (14:45)
[2022-02-18] MEDS: Ketorolac Tromethamine 15 MG/ML VIAL IVPUSH (14:45)
[2022-02-18] MEDS: cefTRIAXone sodium 1 GM in 0.9 % Sodium Chloride 50 ML IV (14:46)
[2022-02-18] MEDS: 0.9 % Sodium Chloride 1,000 ML 999 ML IV (14:46)
[2022-02-18] MEDS: dexAMETHasone sod phosphate 10 MG/ML VIAL IVPUSH (14:46)
[2022-02-18 14:55] LABS: Basophils Absolute Auto 0.1 X10*3/uL (0.0-0.2); Basophils Percent Auto 0.3 % (0-2); Eosinophils Absolute Auto 0.1 X10*3/uL (0.0-0.4); Eosinophils Percent Auto 0.2 % (0-4); Hematocrit 40.9 % (42.0-52.0); Hemoglobin 13.6 g/dl (14.0-18.0); Imm Gran Abs Auto 0.21 X10*3/uL (0.00-0.03); Imm Gran Pct Auto 0.7 % (0.0-0.4); Lymphocytes Absolute Auto 1.9 X10*3/uL (1.2-4.9); MANUAL DIFF FLAG SCAN; Mean Corpuscular HGB Conc 33.3 g/dl (31.0-36.0); Mean Corpuscular Hemoglobin 29.2 pg (27.0-33.0); Mean Platelet Volume 9.6 fL (9.4-12.4); Monocytes Absolute Auto 1.3 X10*3/uL (0.1-1.2); Monocytes Percent Auto 4.1 % (2-11); Neutrophils Absolute Auto 27.7 x10*3/uL (2.0-8.3); Neutrophils Percent Auto 88.7 % (45-73); Platelet Count 448 X10*3/uL (160-400); Red Blood Count 4.65 X10*6/uL (4.60-5.80); Red Cell Distribution Width 12.8 % (11.0-16.0); SCAN SMEAR FLAG 1
--- NOTE | 2022-02-18 14:55 | PC.NURSE ---
patient a&ox3, mother at bedside, iv inserted, labs drawn, bus driver/monitor applied, pt medicated per order, will obtain a urine when able- pt aware we need a urine sample, pts pupils are pinpoint and when asked pt stated he does use cocaine at times although states he hasnt used recently.
[2022-02-18 14:58] LABS: INTERNATIONAL NORM RATIO 1.2 (0.9-1.1); Prothrombin Time 13.9 SEC (10.0-13.1)
[2022-02-18 14:59] LABS: White Blood Count 31.2 X10*3/uL (4.8-10.8)
[2022-02-18 15:00] LABS: Partial Thromboplastin Time 33.6 SEC (26.0-36.4)
[2022-02-18 15:12] LABS: SLIDE REVIEW VERIFIED
[2022-02-18 15:15] LABS: Lactic Acid 1.1 mmol/L (0.5-2.0)
[2022-02-18 15:22] LABS: Alanine Aminotransferase 16 U/L (0-40); Albumin Level 3.7 g/dL (3.5-5.0); Alkaline Phosphatase 87 U/L (39-117); Anion Gap 12 (12-20); Aspartate Amino Transferase 17 U/L (5-37); Bilirubin Total 0.5 mg/dL (0.0-1.0); Blood Urea Nitrogen 7 mg/dL (9-16); Calcium 8.7 mg/dL (8.4-10.2); Carbon Dioxide 23 mmol/L (22-29); Chloride 104 mmol/L (96-108); Creatinine Clr Calc Pharmacy 169.6; Estimated Glomerular Filt Rate > 60; Glucose Random 114 mg/dL (60-115); Lipase 9 U/L (8-78); Potassium 4.2 mmol/L (3.3-5.1); Sodium 135 mmol/L (135-145)
--- NOTE | 2022-02-18 15:30 | PC.NURSE ---
patient to ct scan
[2022-02-18] MEDS: iohexoL 350 MG/ML 100 ML INFUS..BTL IV (15:37)
--- NOTE | 2022-02-18 15:49 | PC.NURSE ---
ivf continue to run, provider in room
[2022-02-18 15:54] VITALS: BP 138/78; PULSE 115; RESP 16; TEMP 38.2; O2SAT 97
--- NOTE | 2022-02-18 15:56 | MHC.EDTECH ---
pt was hooked up to residential monitor pt this pct .
[2022-02-18 16:03] LABS: Amphetamine Screen Urine Not Detected (Not Detect); Barbiturates, Urine Not Detected (Not Detect); Benzodiazepines Screen Urine Not Detected (Not Detect); Cannabinoid Screen Urine Not Detected (Not Detect); Cocaine Screen Urine POSITIVE (Not Detect); Fentanyl, urine Not Detected (Not Detect); Opiate Screen Urine Not Detected (Not Detect); Phencyclidine Screen Urine Not Detected (Not Detect)
[2022-02-18] MEDS: Acetaminophen Oral Liquid 650 MG/20.3 ML SOLUTION PO (16:03)
--- NOTE | 2022-02-18 16:15 | PC.NURSE ---
pt medicated with tylenol per order
[2022-02-18 16:39] LABS: COVID-19 Test Negative (Negative); IDNOW Serial# BCCEAD1C
--- NOTE | 2022-02-18 16:52 | MHC.EDTECH ---
Contacted [facility], [facility] and [facility] for possible transfer with all declining. Contacted and pt was accepted. Charge aware and transport booked.
--- NOTE | 2022-02-18 16:58 | PC.NURSE ---
report given to ED
== END 2022-02-18 17:26 | disposition short-term general hospital (02) ==
PROVIDERS: Emergency Medicine Emergency Medical Services; Physician Assistant; Emergency Provider Student in an Organized Health Care Education/Training Program
DX: J02.0 Streptococcal pharyngitis (principal); A40.0 Sepsis due to streptococcus, group A; J36 Peritonsillar abscess; F19.10 Other psychoactive substance abuse, uncomplicated; Z20.822 Contact with and (suspected) exposure to COVID-19
CPT/HCPCS: 36415; 70491; 80053; 80307; 83605; 83690; 85025; 85610; 85730; 87040; 87635; 87651; 96365; 96375; 99285; J0696; J1100; J1885; Q9967